=== PATIENT | male | born 1935 | race Caucasian/White ===

== ENCOUNTER 2018-07-01 11:13 | Inpatient (IN) | payer MEDICARE, BC ==
--- NOTE | 2018-07-01 11:34 | ED ---
Shortness of Breath - HPI Summary HPI Summary: This patient is a 82 year old M presenting to [facility] accompanied by his family with a chief complaint of SOB. The patient rates the pain 0/10 in severity. Symptoms aggravated by movement. Patient reports general malaise, fever, and a cough that is worse when lying. Patient denies CP and recent steroid use. Pt also had n/v last night. 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 He began a new medication and the dose has been increased with him reaching max dosage 3 days ago. Since then he has had increased SOB. He uses a CPAP at 2 L at night but not NC. 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 No hx CHF but had a valve replacement a year ago. - History of Current Complaint Chief Complaint: EDShortnessOfBreath Time Seen by Provider: 07/01/18 11:24 Hx Obtained From: Patient Onset/Duration: Still Present, Worse Since Timing: Constant Current Severity: Moderate Dyspnea At: Rest Aggrevating Factors: Movement Associated Signs & Symptoms: Cough (Nonproductive), Fever - Allergy/Home Medications Allergies/Adverse Reactions: Allergies Allergy/AdvReac Type Severity Reaction Status Date / Time tramadol Allergy Intermediate Unknown Verified 07/01/18 14:34 Reaction Details tamsulosin Allergy Unknown Unknown Verified 07/01/18 14:34 Reaction Details Home Medications: Home Medications Amitriptyline TAB* [Elavil TAB*] 25 mg PO QPM 07/01/18 [History Confirmed ] Ascorbic Acid TAB* [Vitamin C TAB*] 1,000 mg PO .FIVE TIMES A DAY 07/01/18 [ History Confirmed 07/01/18] Atorvastatin* [Lipitor*] 20 mg PO QPM 07/01/18 [History Confirmed 07/01/18] Azithromycin TAB* [Zithromax TAB (Z-DARLINE) 250 mg #6 tabs] 250 mg PO QAM 07/01/18 [History Confirmed 07/01/18] Cholecalciferol TAB* [Vitamin D TAB*] 400 unit PO EVERY OTHER DAY 07/01/18 [ History Confirmed 07/01/18] Cyanocobalamin TAB* [Vitamin B12 TAB*] 500 mcg PO DAILY 07/01/18 [History Confirmed 07/01/18] Digoxin TAB* [Lanoxin TAB*] 0.125 mg PO DAILY 07/01/18 [History Confirmed ] Flocinonide Cream 1 applic TOPICAL DAILY PRN 07/01/18 [History Confirmed ] Fluticasone NASAL SPRAY 50MCG* [Flonase NASAL SPRAY 50MCG*] 1 spray BOTH NARES DAILY 07/01/18 [History Confirmed 07/01/18] Glucosamine/MSM/Chondroitin A [Glucosamine Chondroitin &] 2 tab PO DAILY [History Confirmed 07/01/18] Lecithin, Soy [Lecithin] 1,200 mg PO DAILY 07/01/18 [History Confirmed 07/01/18] Magnesium Oxide TAB* [MagOx 400 TAB*] 400 mg PO DAILY 07/01/18 [History Confirmed 07/01/18] Maitake Mushroom 6 dose PO DAILY 07/01/18 [History Confirmed 07/01/18] Metoprolol Succinate XL TAB* [Toprol XL TAB*] 50 mg PO QPM 07/01/18 [History Confirmed 07/01/18] Metoprolol Succinate XL TAB* [Toprol XL TAB*] 75 mg PO QAM 07/01/18 [History Confirmed 07/01/18] N-Acetyl Cysteine 750mg 600 mg PO BID 07/01/18 [History Confirmed 07/01/18] Pantoprazole TAB (NF) [Protonix TAB (NF)] 20 mg PO DAILY 07/01/18 [History Confirmed 07/01/18] Pirfenidone [Esbriet] 267 mg PO DAILY 07/01/18 [History Confirmed 07/01/18] Tamsulosin CAP* [Flomax CAP*] 0.4 mg PO QPM 07/01/18 [History Confirmed 07/01/18 ] Thiamine TAB* [Vitamin B-1 TAB*] 100 mg PO DAILY 07/01/18 [History Confirmed 04/10] Vitamin B5 500mg 500 mg PO DAILY 07/01/18 [History Confirmed 07/01/18] Warfarin TAB(*) [Coumadin TAB(*)] 4 mg PO SUMOTUWEFRSA 07/01/18 [History Confirmed 07/01/18] Warfarin TAB(*) [Coumadin TAB(*)] 6 mg PO TH 07/01/18 [History Confirmed ] PMH/Surg Hx/FS Hx/Imm Hx Endocrine/Hematology History: Denies: Hx Diabetes, Hx Systemic Lupus Erythematosus Cardiovascular History: Reports: Hx Valvular Heart Disease - MVP Denies: Hx Congestive Heart Failure, Hx Hypertension Respiratory History: Reports: Hx Sleep Apnea, Other Respiratory Problems/ Disorders - PULMONARY FIBROSIS, BRONCHIECTASIS Denies: Hx Chronic Obstructive Pulmonary Disease (COPD) - see lung disease GI History: Reports: Hx Irritable Bowel - ? 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 Pulmonary Fibrosis. Acetelectasis/Bronch. Has had chemotherapy and radiation 1990 Hx Chemotherapy: Yes - 1990 - Surgical History Surgery Procedure, Year, and Place: Tonsillectomy. Oral Surgery. Lymph Node Excision 1990. [facility] Hx Anesthesia Reactions: No Infectious Disease History: No Infectious Disease History: Denies: Traveled Outside the [place] in Last 30 Days - Social History Alcohol Use: Daily Alcohol Amount: 1-2 Substance Use Type: Reports: None Smoking Status (MU): Former Smoker Type: Pipe Amount Used/How Often: ONCE A DAY SMOKED PIPE Length of Time of Smoking/Using Tobacco: 9 YEARS Have You Smoked in the Last Year: No Review of Systems Positive: Fever, Other - general malaise Negative: Chest Pain Positive: Shortness Of Breath, Cough Positive: Vomiting, Nausea All Other Systems Reviewed And Are Negative: Yes Physical Exam - Summary Physical Exam Summary: GENERAL: Patient is a well-developed and nourished M who is lying comfortable in the stretcher. There is increased work of breathing HEAD AND FACE: Normocephalic EYES: PERRLA, EOMI x 2. EARS: Hearing grossly intact. MOUTH: Oropharynx within normal limits. NECK: Supple, trachea is midline, no adenopathy, no JVD, no carotid bruit. CHEST: Symmetric, no tenderness at palpation LUNGS: crackles diffusely CVS: Regular rate and rhythm, S1 and S2 present, no murmurs or gallops appreciated. ABDOMEN: Soft, non-tender. Bowel sounds are normal. No abdominal abnormal pulsations. EXTREMITIES: Full ROM in all major joints, no edema, no cyanosis or clubbing. NEURO: Alert and oriented x 3. No acute neurological deficits. Speech is normal and follows commands. SKIN: Dry and warm Triage Information Reviewed: Yes Vital Signs On Initial Exam: Initial Vitals Temp Pulse Resp BP Pulse Ox 98.0 F 95 28 108/62 94 18 11:18 1118 11:18 1118 11:18 07/01/18 11:18 07/01/18 11:18 Vital Signs Reviewed: Yes Diagnostics - Vital Signs Vital Signs Temp Pulse Resp BP Pulse Ox 07/01/18 11:18 98.0 F 95 28 108/62 94 - Laboratory Result Diagrams: 07/01/18 11:38 07/01/18 11:38 Lab Statement: Any lab studies that have been ordered have been reviewed, and results considered in the medical decision making process. - Radiology CXR Radiology Interpretation Completed By: Radiologist Summary of Radiographic Findings: COPD WITH CHRONIC INTERSTITIAL LUNG DISEASE. ED physician has reviewed this radiology report. - EKG 1113 Cardiac Rate: Other Rate EKG Rhythm: Atrial Fibrillation - at 63 BPM Summary of EKG Findings: interventricular conduction delay. Non specific ST depressions. Course/Dx - Course Assessment/Plan: This patient is a 82 year old M presenting to [facility] accompanied by his family with a chief complaint of SOB. An EKG reveals afib 69 BPM interventricular conduction delay. Non specific ST depressions. CXR reveals, per radiologist, COPD WITH CHRONIC INTERSTITIAL LUNG DISEASE. Work up remarkable for an elevated D dimer. CTA chest shows no PE. Presentation is most consistent with idiopathic pulmonic fibrous. We discussed patient care with Dr. Yoo and they have accepted the patient for admission. Patient will be admitted. The patient is agreeable with this plan. - Diagnoses Provider Diagnoses: Shortness of breath - Physician Notifications Discussed Care of Patient With: Laine Yoo Time Discussed With Above Provider: 13:03 Instructed by Provider To: Admit As Inpatient - Critical Care Time Critical Care Time: 30-74 min Discharge - Sign-Out/Discharge Documenting (check all that apply): Patient Departure - admitted - Discharge Plan Condition: Fair Disposition: ADMITTED TO [facility] - Billing Disposition and Condition Condition: FAIR Disposition: Admitted to [facility] - Attestation Statements Document Initiated by Carmenibe: Yes Documenting Scribe: Francesco Partida Provider For Whom Scribe is Documenting (Include Credential): Gregoria Lopez MD Scribe Attestation: Francesco Palacios, scribed for Gregoria Lopez MD on 07/01/18 at 1810. Scribe Documentation Reviewed: Yes Provider Attestation: The documentation as recorded by the Francesco elias accurately reflects the service I personally performed and the decisions made by me, Gregoria Lopez MD
[2018-07-01] MEDS ORDERED: Dexamethasone IV* 4 MG/ML 1 ML (4 MG) IV SLOW PU ONE (11:36)
[2018-07-01] MEDS ORDERED: Albuterol/Ipratropium NEB.SOL* Albuterol 2.5 MG/Ipratropium 0.5 MG 3 ML INH ONE (11:36)
[2018-07-01 11:55] LABS: ABS Basophils 0.1 10^3/ul (0-0.2); ABS Eosinophils 0.3 10^3/ul (0-0.6); ABS Lymphocytes 1.5 10^3/ul (1.0-4.8); ABS Monocytes 0.8 10^3/ul (0-0.8); ABS Neutrophils 5.1 10^3/ul (1.5-7.7); ABS Nucleated RBC 0 10^3/ul; Eosinophil % 3.8 % (0-6); Hematocrit 42 % (42-52); Hemoglobin 14.4 g/dl (14.0-18.0); Lymphocyte % 19.6 % (25-47); Mean Corpuscular HGB Conc 34 g/dl (31-36); Mean Corpuscular Hemoglobin 32 pg (27-31); Mean Corpuscular Volume 96 fL (80-94); Mean Platelet Volume 7.5 fL (7.4-10.4); Nucleated Red Blood Cells % 0; Platelet Count 167 10^3/ul (150-450); Red Blood Count 4.43 10^6/ul (4.00-5.40); Red Cell Distribution Width 14 % (10.5-15); White Blood Count 7.9 10^3/ul (3.5-10.8)
[2018-07-01 12:14] LABS: EGFR Non-African American 84.4 (>60)
[2018-07-01 12:39] LABS: INR 2.04 (0.77-1.02)
[2018-07-01] MEDS ORDERED: Acetaminophen TAB* 325 MG PO PRN (15:43)
[2018-07-01] MEDS ORDERED: Ondansetron INJ* 2 MG/ML VIAL IV PRN (15:43)
[2018-07-01] MEDS ORDERED: Albuterol 2.5 MG/3 ML NEB.SOL* (0.083%) INH PRN (15:43)
[2018-07-01] MEDS ORDERED: Vancomycin(*) 1,000 MG in NS 0.9% 250 ML* 250 ML IVPB ONE (15:44)
[2018-07-01] MEDS ORDERED: NS 0.9% 1000 ML* 1,000 ML IV SCH (15:45)
[2018-07-01] MEDS ORDERED: Vancomycin per Pharmacy* NOTE FOLLOW UP SCH (16:00)
[2018-07-01] MEDS ORDERED: Iohexol 350* (CONTRAST) 500 ML MDV IV ONE (16:01)
[2018-07-01] MEDS: Albuterol/Ipratropium NEB.SOL* Albuterol 2.5 MG/Ipratropium 0.5 MG 3 ML INH SCH ×3 (16:29→22:49)
[2018-07-01] MEDS: Cefepime 2 GM in Dextrose(*) 2 GM/50 ML BAG IV SCH (16:59)
[2018-07-01] MEDS ORDERED: Warfarin TAB(*) 6 MG PO SCH (17:00)
[2018-07-01] MEDS: Azithromycin IV(*) 500 MG in NS 0.9% 250 ML* 250 ML IVPB SCH (17:37)
[2018-07-01] MEDS: methylPREDNISolone 125 MG* 2 ML VIAL IV SCH ×2 (17:37→23:37)
[2018-07-01] MEDS: Amitriptyline TAB* 25 MG PO SCH ×2 (17:38→21:02)
[2018-07-01] MEDS: Tamsulosin CAP* 0.4 MG PO SCH ×2 (17:38→21:01)
[2018-07-01] MEDS: Atorvastatin* 20 MG TAB PO SCH ×2 (17:38→21:01)
[2018-07-01] MEDS ORDERED: Metoprolol Tartrate TAB* 25 MG PO SCH (21:00)
[2018-07-01] MEDS ORDERED: N ACETYL CYSTEINE PO SCH (21:00)
[2018-07-01] MEDS: Mometasone/Formoter 200/5 MDI INH SCH (21:00)
[2018-07-01] MEDS: Acetylcysteine CAP (RENAL)* 600 MG PO SCH (21:01)
[2018-07-01] MEDS: Metoprolol Tartrate TAB* 25 MG PO SCH (21:04)
--- NOTE | 2018-07-01 21:29 | CONS ---
PULMONARY CONSULT REPORT: DATE OF CONSULT: 07/01/18 CONSULTATION REQUESTED BY: Pedro Sow NP REASON FOR CONSULT: Evaluation of shortness of breath and hypoxemia. HISTORY OF PRESENT ILLNESS: The patient is an 82-year-old male with history of idiopathic pulmonary fibrosis, recently started on medication, sleep apnea, BPH , arthritis, cataracts, essential tremor, T-cell lymphoma, status post chemo and radiation in 1990. The patient presents for evaluation of worsening shortness of breath. The patient recently had evaluation at [facility] for pulmonary fibrosis. He was initiated on pirfenidone. He was started on 100 mg b.i.d. dose which was slowly increased to the maximum dose a few days back. He started noticing significant fatigue over the past 4 to 5 days. He also has been having worsening shortness of breath. He has chronic cough not productive of significant phlegm. He also reports slight worsening in his cough. Cough is worse when he lies down. He gets some relief with albuterol inhaler and essential oils on his back. He denies chest pain, palpitations, dizziness. Reports significant fatigue. Also, reports nausea and vomiting yesterday. He reports choking while eating yesterday and thinks he might have aspirated into his lungs. He had significant cough post that episode. He is on CPAP with 2 L of oxygen at night. He has a history of mitral valve replacement in the past and has been on warfarin. The patient found to be significantly tachypneic on arrival in the ED. He was noted to be mildly hypoxemic. He was initiated on supplemental oxygen and reports feeling better. Chest x-ray performed in the emergency room was personally reviewed by me. The patient with evidence of hyperinflation. He also has coarse diffuse reticular infiltrates that are unchanged prior to his prior x-rays. The patient also was initiated on GERD therapy recently; however, he feels that it did not improve his cough. He did not have elevated white count or left shift. INR was around 2, D- dimer is slightly elevated. His blood gas analysis showed respiratory alkalosis with pO2 of 110 while on 4 L O2. Sodium was within normal limits. His BNP was slightly elevated at 126 with normal troponins. Lactic acid within normal limits. He was started on broad-spectrum antibiotics empirically. His CT of the chest with contrast was ordered for evaluation of possible pulmonary embolism. PAST MEDICAL HISTORY: 1. Pulmonary fibrosis, has been on azithromycin for many years, recently started on pirfenidone. 2. Status post aortic valve replacement. 3. BPH. 4. Chronic cough. 5. Dyslipidemia. 6. Coronary artery disease. 7. Cataracts. 8. Osteoarthritis. 9. History of T-cell lymphoma, status post chemo and radiation in 1990. PAST SURGICAL HISTORY: 1. Tonsillectomy. 2. Oral surgery. 3. Lymph node excision in 1990. 4. Laser lithotripsy. ALLERGIES: FLOMAX, TRAMADOL. FAMILY HISTORY: Reviewed. Noncontributory to current presentation. SOCIAL HISTORY: Former smoker, smoked pipe for 9 years. Quit long time ago. No alcohol or drug abuse. REVIEW OF SYSTEMS: All 14 systems reviewed and as per HPI. PHYSICAL EXAM: The patient in mild respiratory distress. Vital signs: Temperature 98.7, pulse rate 82 beats per minute, respiratory rate 27 per minute , O2 sat 97% on 50% FiO2, blood pressure 92/64. HEENT: Pupils equal, reactive to light. Mucous membranes moist. Lungs: Crackles present at bases bilaterally. Cardiovascular: S1, S2 present, regular. No murmurs. Abdomen: Soft, nontender, nondistended. Bowel sounds present. Extremities: Normal range of motion. No edema. Skin: No rash or bruises. Neuro: No focal deficits. DIAGNOSTIC STUDIES/LAB DATA: WBC count 7.9, hemoglobin 14.4, hematocrit 42%, platelet count 167. INR 2.0. Blood gas analysis as described with respiratory alkalosis. Electrolytes, no abnormality seen. BNP is slightly elevated. Influenza A and B negative. Chest x-ray as described above in HPI. CT scan of the chest pending. EKG showed no acute ST-T wave changes. Pulmonary function testing in 2012 did not reveal any obstructive ventilatory defect. No evidence of restriction seen. The patient's medical records from his hospitalizations before at [facility] were reviewed. The patient with low FVC of 35%. IMPRESSION AND RECOMMENDATIONS: 82-year-old male without significant smoking history with pulmonary embolism, considered to be idiopathic was initiated on pirfenidone. The patient presents with generalized malaise, nausea, vomiting, possible aspiration event while eating yesterday and with worsening shortness of breath and hypoxemia. Acute exacerbation of idiopathic pulmonary fibrosis is more likely. Does not manifest any signs of pneumonia. We will, however, cover empirically. Do not suspect pulmonary embolism. He is also on Coumadin with INR that is therapeutic. However, given significant hypoxemia and symptoms , we will rule out pulmonary embolism. We will initiate the patient on high- flow O2 and titrate as tolerated. Would start on broad-spectrum antibiotic empirically and will stop if no signs of sepsis noted. Continue with GERD prophylaxis. He has history of moderate obstructive sleep apnea with AHI of 17.1, O2 nakul of 81%. He had CPAP titration study, required CPAP of 10 cm H2O. He is using CPAP along with oxygen. He is compliant with his CPAP and denies any issues. Continue with CPAP here. Will stop pirfenidone given acute change in his status at this time. We will restart once he is stable. Last echocardiogram from March of 2017 did show mild to moderate dilatation of the left atrium, normal functioning of mitral valve. He had cardioversion in the past and was converted to sinus rhythm. The patient had swallow evaluation in January of 2018. No evidence of aspiration was seen at that time. Aspiration precautions. He had coronary catheterization in the past, was not found to have significant occlusion. Thank you for allowing me to participate in the care of your patient. We will follow up with you. Plan was discussed with Pedro Sow, patient and patient's family at bedside. 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 [id number]/[facility] #: [id number] ANDREW
--- NOTE | 2018-07-01 21:37 | HP ---
CC: Armen Han MD; Dr. Hilton; Dr. Ramsey * HISTORY AND PHYSICAL: DATE OF ADMISSION: 07/01/18 PRIMARY CARE PROVIDER: Armen Han MD ATTENDING PHYSICIAN WHILE IN THE HOSPITAL: Laine Yoo DO * (report dictated by Pedro Sow NP). CONSULTING TAX LAWYER: Dr. Hilton. CONSULTING NETWORK ENGINEERING ADVISOR: Dr. Ramsey. CHIEF COMPLAINT: 1. Nausea. 2. Shortness of breath. 3. Weakness. HISTORY OF PRESENT ILLNESS: Mr. Guerrero is an 82-year-old male patient with a significant history of atrial fibrillation; lymphoma; mitral valve disease, status post replacement. He has a history of DAINA. He carries a history of aortic regurg and history of IPF, arthritis and IBS as well. He is coming into our ED today. He says this summer he was seen at [facility] for his IPF and further workup. Ultimately, it was thought that his IPF may be related to radiation treatment from lymphoma. He comes into our ER today stating that he was recently started on a medication Esbriet. He started on this 3 weeks ago. He has recently increased it up to 3 tabs t.i.d., but he says since taking this, he has been having early satiety, feeling nauseated, not feeling well, feeling weak. Over the last 4 days particularly, he has had increasing cough, he has been more short of breath. His says that he has been leaning forward in what look likes a tripod position to catch his breath and she has noted that he has been panting and not been able to catch his breath. There have been no reported fevers and no production of the cough, but he has just been more and more short of breath. He in fact went and saw his primary today, he did have some vomiting, he had coughed up, he had some hemoptysis. He has had some weight loss, energy, feeling achy and just not feeling well. He was noted to be hypoxic at Dr. Han's office. He was sent to the hospital for evaluation. He denies any chest pain. He says that he does feel short of breath. He typically denied having any change in medications with the exception of the new medication for his IPF, the Esbriet. He came into the ED, he was noted to be tachypneic with minimal exertion. He was requiring O2. His chest x-ray, from our chest x-ray over a year ago, did appear to be worsened and his IPF did appear to be worse. There was concern for possible underlying infection based on his presentation, viral or bacterial and we were asked to evaluate for admission. PAST MEDICAL HISTORY: Significant for: 1. AFib. 2. Lymphoma. 3. Mitral valve disorder. 4. Osteoarthritis. 5. IBS. 6. IPF. 7. Aortic regurgitation. 8. DIANA. PAST SURGICAL HISTORY: 1. 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 2. He has had a tonsillectomy. 3. Lymph node resection. 4. He has had multiple teeth extractions. HOME MEDICATIONS: Include: 1. N-acetylcysteine 600 mg p.o. b.i.d. 2. Maitake mushroom 6 pills daily. 3. Magnesium oxide 400 mg daily. 4. Soy 1200 mg p.o. daily. 5. Glucosamine/chondroitin 2 tablets p.o. daily. 6. Vitamin B12 500 mcg daily. 7. Vitamin B5 500 mg daily. 8. Thiamine 100 mg p.o. daily. 9. Vitamin D 400 units p.o. every other day. 10. Vitamin C 1000 mg p.o. 5 times a day. 11. Esbriet. He is on 3 tablets p.o. t.i.d. 12. Digoxin 0.125 mg p.o. daily. 13. Protonix 20 mg daily. 14. Coumadin 6 mg on and he is taking 4 mg Thursday, Thursday, Thursday, Thursday, Thursday, Thursday. 15. ProAir 2 puffs inhaled every 4 hours as needed. 16. Flomax 0.4 mg p.o. q.p.m. 17. Azithromycin 250 mg p.o. daily. 18. Lipitor 20 mg daily. 19. cream 1 application topically daily as needed. 20. Flonase 1 spray both nares daily. 21. Toprol-XL 50 mg at bedtime, 75 mg in the morning. 22. Elavil 25 mg p.o. daily at bedtime. ALLERGIES TO MEDICATIONS: Include TRAMADOL, TIKOSYN, and PROPAFENONE. FAMILY HISTORY: His mother had colon cancer as did his father. SOCIAL HISTORY: He is a former smoker. Occasionally drinks alcohol. Surrogate decision maker is his . REVIEW OF SYSTEMS: There is no documented fever. He does admit to a weight change of about 5 pounds. He denies having any double vision. There is no ear discharge. He denied any rhinorrhea or sore throat. Denies any thyroid enlargement. He denied having any chest pain. He does admit to dyspnea, initially dyspnea on exertion. Denies having any abdominal pain, but he did admit to nausea and vomiting. No dysuria, no frequency. No seizure. Denied having any loss of consciousness. Review of 14 systems was completed, all others negative. PHYSICAL EXAMINATION GENERAL: At this time, Mr. Guerrero is an 82-year-old male patient. He is chronically ill appearing. He does appear to be in [id number] amount of respiratory distress. VITAL SIGNS: Blood pressure 92/64, pulse 82, respirations were 27, O2 sat 97% on Vapotherm, temperature 98.7. HEENT: Head: Atraumatic and normocephalic. Eyes: EOMs are intact. Sclerae anicteric and not pale. Throat: Oral mucosa appears to be dry. No oropharyngeal erythema. NECK: Supple. LUNGS: He had diffuse crackles in the bases bilaterally and wheezing. Equal diaphragmatic expansion. HEART: Sounds S1, S2. He had an irregularly irregular rate. No murmurs, rubs , or gallops. ABDOMEN: Soft. It was flat, nontender. Bowel sounds were present. EXTREMITIES: Pulses were 2+ throughout. No peripheral edema. He is moving all 4 extremities with 5/5 strength. NEUROLOGICAL: He is awake. He is alert. He is oriented x3. He had no gross focal deficits. SKIN: Intact. DIAGNOSTIC STUDIES/LAB DATA: WBC of 7.9, RBC of 4.43, hemoglobin of 14.4, hematocrit of 42, and his platelet count was 167,000. INR was 2.04, PTT of 33.8 , D- dimer of 286. Blood gas showed a pH of 7.56, pCO2 of 28, his pO2 was 110. His sodium was 138, potassium was 4.7, chloride of 102, his bicarb was 30, BUN 15, creatinine of 0.87, glucose 86, lactic 1, calcium 9.6, mag 2.2. Total bili 0.7, AST 31, ALT 32, alk phos 80. Troponin of 0.01, repeat troponin was 0.01. BNP 126. Albumin of 2.5. Serology negative for flu. He did have a chest x-ray obtained today, impression: COPD with chronic interstitial lung disease. Again, when I review it, it appears to be worsening fibrosis compared to his chest x-ray from a year ago. I do not see any obvious infiltrates. He did have an EKG obtained today as well, which does show atrial fibrillation with an intraventricular conduction delay with LVH with a normal axis, rate of 69. When you look back to his EKG from a year ago, it appears to be similar. Old medical records were reviewed. ASSESSMENT AND PLAN: Mr. Guerrero is an 82-year-old male patient coming into our ER today with complaints of worsening shortness of breath, not feeling well , fatigue, nausea and vomiting. We were asked to evaluate for admission. He will be admitted under inpatient status for: 1. Acute hypoxic respiratory failure secondary to idiopathic pulmonary fibrosis exacerbation. Again, I am not sure what is exacerbating his idiopathic pulmonary fibrosis. At this point, it could be certainly a viral illness or bacterial illness. I did touch base with his pulmonology group in [place] and also our brick carrier here. The plan is for aggressive steroids, Solu-Medrol 60 q.8 nebs every 4 hours in the form of DuoNeb, inhaled steroids; in addition to this broad- spectrum antibiotics in the form of vanco, cefepime, and azithromycin. He will be pancultured. I will send off viral cultures if possible per the recommendations of his brick carrier. I have put him on Vapotherm in the ICU given his work of breathing. His gas clearly shows that he was again tachypneic and we will continue with aggressive pulmonary toileting. We will try to get sputum cultures, Legionella antigen and Strep pneumo antigen and we will continue to follow him closely. I am holding his Esbriet medication per the recommendations of Pulmonology and we are getting a CTA of the chest just to rule out pulmonary embolism, although I suspect this is less likely given the fact that he is on Coumadin and his INR is therapeutic. 2. Atrial fibrillation. His blood pressure down here has been running in the low 100s and 90s, so I will continue his digoxin level which is pending and I will continue his metoprolol, but I have switched his metoprolol to immediate release at 50 b.i.d. It is a slightly smaller dose, but I do not want to cause hypotension and I do not want him to be on an extended release formulation while he is acutely ill. We will continue his warfarin as well. 3. Lymphoma. Follow up with his PCP. 4. History of mitral valve disorder and aortic regurgitation. Again, at this point, I do not think this is contributing. His BNP is stable. Trops are negative. He can follow up with his PCP. 5. Obstructive sleep apnea. I have ordered his CPAP, but he is currently on his Vapotherm. 6. Arthritis. Continue meds as prescribed. 7. Irritable bowel syndrome. Continue with his current medical regimen. 8. DVT prophylaxis: His INR is therapeutic. We will continue with this. 9. Fluids, electrolytes, and nutrition: He can have a regular diet. 10. Code status: Full code. I did have a long discussion with the patient about goals of care and the fact that intubation I think would be detrimental and could be leading to him not coming off the ventilator; however, the family would like to think about the wishes, particularly the patient as his overall prognosis is poor given his disease. TIME SPENT: Time spent on the admission which was critical care time was 90 minutes, greater than half the time spent [id number] with the patient obtaining my history and physical, other half of the time spent going over the plan of care with the patient and implementing the plan of care. I did discuss the plan of care with my attending, Dr. Yoo; she is in agreement. PEDRO SOW, MARIA DOLORES [id number]/CPS #: [id number] ANDREW
[2018-07-02] MEDS: Vancomycin(*) 1,000 MG in NS 0.9% 250 ML* 250 ML IVPB SCH ×2 (02:53→11:26)
[2018-07-02] MEDS: Albuterol/Ipratropium NEB.SOL* Albuterol 2.5 MG/Ipratropium 0.5 MG 3 ML INH SCH ×5 (03:00→19:14)
[2018-07-02] MEDS: Cefepime 2 GM in Dextrose(*) 2 GM/50 ML BAG IV SCH ×2 (05:05→18:12)
[2018-07-02 06:19] LABS: ABS Basophils 0.1 10^3/ul (0-0.2); ABS Eosinophils 0 10^3/ul (0-0.6); ABS Lymphocytes 1.1 10^3/ul (1.0-4.8); ABS Monocytes 0.1 10^3/ul (0-0.8); ABS Neutrophils 7.3 10^3/ul (1.5-7.7); ABS Nucleated RBC 0 10^3/ul; Eosinophil % 0 % (0-6); Hematocrit 39 % (42-52); Hemoglobin 13.1 g/dl (14.0-18.0); Lymphocyte % 12.9 % (25-47); Mean Corpuscular HGB Conc 34 g/dl (31-36); Mean Corpuscular Hemoglobin 32 pg (27-31); Mean Corpuscular Volume 96 fL (80-94); Mean Platelet Volume 7.4 fL (7.4-10.4); Nucleated Red Blood Cells % 0; Platelet Count 153 10^3/ul (150-450); Red Blood Count 4.05 10^6/ul (4.00-5.40); Red Cell Distribution Width 14 % (10.5-15); White Blood Count 8.7 10^3/ul (3.5-10.8)
[2018-07-02 06:27] LABS: INR 2.44 (0.77-1.02)
[2018-07-02 06:44] LABS: EGFR Non-African American 112.2 (>60)
[2018-07-02] MEDS: methylPREDNISolone 125 MG* 2 ML VIAL IV SCH ×2 (08:25→16:44)
[2018-07-02] MEDS: Acetylcysteine CAP (RENAL)* 600 MG PO SCH (09:28)
[2018-07-02] MEDS: Metoprolol Tartrate TAB* 25 MG PO SCH ×2 (09:28→21:29)
[2018-07-02] MEDS: Digoxin TAB* 0.125 MG PO SCH (09:29)
[2018-07-02] MEDS ORDERED: Vancomycin Trough Check NOTE FOLLOW UP ONE (09:30)
[2018-07-02] MEDS: Mometasone/Formoter 200/5 MDI INH SCH ×2 (09:45→19:14)
[2018-07-02] MEDS ORDERED: Vancomycin(*) 1,000 MG in NS 0.9% 250 ML* 250 ML IVPB SCH (12:00)
[2018-07-02] MEDS: PTO: Pantoprazole TAB (NF) 20 MG TAB PO SCH (16:43)
[2018-07-02] MEDS: Azithromycin IV(*) 500 MG in NS 0.9% 250 ML* 250 ML IVPB SCH (16:45)
--- NOTE | 2018-07-02 17:42 | PN ---
Progress Note - Progress Note Date of Service: 07/02/18 - Pulm f/u note Note: Pt seen and examined at bedside. Reports feeling better, able to be titrated down to 5L ROS: 14 systems reviewed. SOB with movement, no cough, chest pain, LE swelling, N, diarrhea, head aches, rash, urinary complaints Active Medications Generic Name Dose Route Start Last Admin Trade Name Freq PRN Reason Stop Dose Admin Acetaminophen 650 mg 07/01/18 15:43 Tylenol Tab* PO Q4H PRN FEVER/PAIN Albuterol 2.5 mg 07/01/18 15:43 Ventolin 2.5 Mg/3 Ml Neb.Keri* INH Q2H PRN SOB/WHEEZING Albuterol/Ipratropium 1 neb 07/02/18 13:00 07/02/18 13:59 Duoneb (Albuterol 2.5 Mg/Ipratropium 0.5 Mg) INH 1 neb [id number] AWAKE CHANDU Administration Amitriptyline HCl 25 mg 07/01/18 21:00 07/01/18 21:02 Elavil Tab* PO 25 mg 2100 CHANDU Administration Atorvastatin Calcium 20 mg 07/01/18 21:00 07/01/18 21:01 Lipitor* PO 20 mg 2100 CHANDU Administration Benzonatate 100 mg 07/02/18 14:25 Tessalon Cap* PO BID PRN COUGH Digoxin 0.125 mg 07/02/18 09:00 07/02/18 09:29 Lanoxin Tab* PO 0.125 mg DAILY CHANDU Administration Sodium Chloride 1,000 mls @ 100 mls/hr 07/01/18 15:45 07/01/18 16:59 Ns 0.9% 1000 Ml* IV 100 mls/hr PER RATE CHANDU Administration Cefepime HCl 2 gm in 50 mls @ 100 mls/hr 07/01/18 17:00 07/02/18 05:05 Maxipime 2 Gm In Dextrose Duplex (*) IV 100 mls/hr Q12H CHANDU Administration Azithromycin 500 mg/ Sodium 250 mls @ 250 mls/hr 07/01/18 16:00 07/02/18 16: 45 Chloride IVPB 250 mls/hr Q24H CHANDU Administration Vancomycin HCl 1,000 mg/ 250 mls @ 166.667 mls/hr 07/03/18 00:00 Sodium Chloride IVPB 0000,1200 CHANDU Methylprednisolone Sodium Succinate 60 mg 07/01/18 16:00 07/02/18 16:44 Solu-Medrol 125mg * IV 60 mg Q8H [facility] Administration Metoprolol Tartrate 50 mg 07/01/18 21:00 07/02/18 09:28 Lopressor Tab* PO 50 mg BID [facility] Administration Mometasone Furoate/Formoterol Fumar 2 puff 07/01/18 21:00 07/02/18 09:45 Dulera 200/5 Mdi* INH Not Given BID [facility] Acetylcysteine 750 1 dose 07/02/18 21:00 Mg Capsules PO BID [facility] Ondansetron HCl 4 mg 07/01/18 15:43 Zofran Inj* IV Q6H PRN NAUSEA Pantoprazole Sodium 20 mg 07/02/18 09:00 07/02/18 16:43 Protonix Tab (Nf) PO 20 mg DAILY [facility] Administration Pharmacy Consult 1 note 07/01/18 16:00 Vancomycin Per Pharmacy* FOLLOW UP .VANC PER PHARMACY [facility] Pharmacy Profile Note 1 note 07/03/18 11:30 Vancomycin Trough Check FOLLOW UP 07/03/18 11:31 .ENTER TIME ONE Tamsulosin HCl 0.4 mg 07/01/18 18:00 07/01/18 21:01 Flomax Cap* PO 0.4 mg QPM [facility] Administration Warfarin Sodium 6 mg 07/01/18 17:00 07/01/18 17:38 Coumadin Tab(*) PO 6 mg Th@1700 [facility] Administration Protocol Warfarin Sodium 4 mg 07/02/18 17:00 Coumadin Tab(*) PO [id number]@1700 [facility] Protocol Vital Signs Temp Pulse Resp BP Pulse Ox 98.2 F 63 22 104/58 98 07/02/18 15:43 07/02/18 12:01 07/02/18 12:01 07/02/18 12:00 07/02/18 12:01 O/E: Pt in NAD, sitting up in bed HEENT: PERRLA, no JVD Lungs: Crackles at bases b/l CVS:S1, S2+, regualr Abd: Soft, BS+ Ext: Normal ROM Skin: NO rash Neuro: Alert, awake, no focal deficits Laboratory Results - last 24 hr 07/01/18 07/01/18 07/01/18 11:38 11:38 17:55 WBC RBC Hgb Hct MCV MCH MCHC RDW Plt Count MPV Neut % (Auto) Lymph % (Auto) [place] % (Auto) Eos % (Auto) Baso % (Auto) Absolute Neuts (auto) Absolute Lymphs (auto) Absolute Monos (auto) Absolute Eos (auto) Absolute Basos (auto) Absolute Nucleated RBC Nucleated RBC % INR (Anticoag Therapy) Sodium 138 Potassium 4.7 Chloride 102 Carbon Dioxide 30 Anion Gap 6 BUN 15 Creatinine 0.87 Est GFR ( Amer) 102.2 Est GFR (Non-Af Amer) 84.4 BUN/Creatinine Ratio 17.2 Glucose 86 Calcium 9.6 Magnesium 2.2 Total Bilirubin 0.70 AST 31 ALT 32 Alkaline Phosphatase 80 Troponin I 0.01 0.01 C-Reactive Protein 26.37 H Cancelled Total Protein 7.5 Albumin 3.5 Globulin 4.0 Albumin/Globulin Ratio 0.9 L Vancomycin Trough 07/02/18 07/02/18 07/02/18 06:08 06:08 06:08 WBC 8.7 RBC 4.05 Hgb 13.1 L Hct 39 L MCV 96 H MCH 32 H MCHC 34 RDW 14 Plt Count 153 MPV 7.4 Neut % (Auto) 84.7 H Lymph % (Auto) 12.9 L [place] % (Auto) 1.7 Eos % (Auto) 0 Baso % (Auto) 0.7 Absolute Neuts (auto) 7.3 Absolute Lymphs (auto) 1.1 Absolute Monos (auto) 0.1 Absolute Eos (auto) 0 Absolute Basos (auto) 0.1 Absolute Nucleated RBC 0 Nucleated RBC % 0 INR (Anticoag Therapy) 2.44 H Sodium 138 Potassium 4.6 Chloride 108 Carbon Dioxide 25 Anion Gap 5 BUN 16 Creatinine 0.68 Est GFR ( Amer) 135.8 Est GFR (Non-Af Amer) 112.2 BUN/Creatinine Ratio 23.5 H Glucose 164 H Calcium 8.8 Magnesium Total Bilirubin AST ALT Alkaline Phosphatase Troponin I C-Reactive Protein Total Protein Albumin Globulin Albumin/Globulin Ratio Vancomycin Trough 07/02/18 08:50 WBC RBC Hgb Hct MCV MCH MCHC RDW Plt Count MPV Neut % (Auto) Lymph % (Auto) [place] % (Auto) Eos % (Auto) Baso % (Auto) Absolute Neuts (auto) Absolute Lymphs (auto) Absolute Monos (auto) Absolute Eos (auto) Absolute Basos (auto) Absolute Nucleated RBC Nucleated RBC % INR (Anticoag Therapy) Sodium Potassium Chloride Carbon Dioxide Anion Gap BUN Creatinine Est GFR ( Amer) Est GFR (Non-Af Amer) BUN/Creatinine Ratio Glucose Calcium Magnesium Total Bilirubin AST ALT Alkaline Phosphatase Troponin I C-Reactive Protein Total Protein Albumin Globulin Albumin/Globulin Ratio Vancomycin Trough 12.5 I/R: 82 y o m with h/o IPF, recently started on Pirfedinone, a/w gen malaise, worsening SOB, hypoxic resp failure, being treated for possible acute IPF exacerbation Differentials- IPF exacerbation versus PNA- HCAP(was recently at hosp in [place] versus aspiration, episode of chocking while eating) 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 No signs of sepsis, can d/c On steroids- Solumedrol 60 q 8 hrs, will taper to 60q 12hrs today Not needing high flow Titrate FiO2 as tolerated GERD precautions Will c/w PPI Pirfenidone on hold c/w Coumadin for A.fib, rate controlled c/w nebs prn OOB to chair D/w RN at bedside
[2018-07-02] MEDS: Warfarin TAB(*) 4 MG PO SCH (18:14)
[2018-07-02] MEDS: Tamsulosin CAP* 0.4 MG PO SCH (18:14)
[2018-07-02] MEDS: Amitriptyline TAB* 25 MG PO SCH ×2 (19:30→21:29)
[2018-07-02] MEDS: Atorvastatin* 20 MG TAB PO SCH ×2 (19:31→21:28)
[2018-07-02] MEDS: ACETYLCYSTEINE PO SCH (21:28)
[2018-07-02] MEDS: Benzonatate CAP* 100 MG PO PRN (21:29)
[2018-07-02] MEDS: Melatonin 3 MG TAB PO SCH (23:45)
[2018-07-03] MEDS ORDERED: Vancomycin(*) 1,000 MG in NS 0.9% 250 ML* 250 ML IVPB SCH ×2
[2018-07-03] MEDS: methylPREDNISolone 125 MG* 2 ML VIAL IV SCH ×3 (00:01→21:40)
[2018-07-03] MEDS: Melatonin 3 MG TAB PO SCH ×2 (00:10→21:44)
[2018-07-03] MEDS: Albuterol/Ipratropium NEB.SOL* Albuterol 2.5 MG/Ipratropium 0.5 MG 3 ML INH SCH ×2 (01:40→07:36)
[2018-07-03] MEDS: Cefepime 2 GM in Dextrose(*) 2 GM/50 ML BAG IV SCH ×2 (04:50→17:23)
[2018-07-03] MEDS: Mometasone/Formoter 200/5 MDI INH SCH ×2 (07:36→20:04)
[2018-07-03] MEDS ORDERED: Albuterol/Ipratropium NEB.SOL* Albuterol 2.5 MG/Ipratropium 0.5 MG 3 ML INH PRN (07:43)
[2018-07-03] MEDS: Digoxin TAB* 0.125 MG PO SCH (08:50)
[2018-07-03] MEDS: PTO: Pantoprazole TAB (NF) 20 MG TAB PO SCH (08:51)
[2018-07-03] MEDS: Metoprolol Tartrate TAB* 25 MG PO SCH ×2 (08:51→21:43)
[2018-07-03] MEDS: ACETYLCYSTEINE PO SCH ×2 (08:51→21:42)
--- NOTE | 2018-07-03 11:13 | PN ---
Progress Note - Progress Note Date of Service: 07/03/18 - Pulmonary note Note: Pt seen and examined at bedside. Doing much better. No acute events o/n. Gets dyspneic with movement, has not ambulated yet. Denies signficant cough, has intermittent dry cough. Active Medications Generic Name Dose Route Start Last Admin Trade Name Freq PRN Reason Stop Dose Admin Acetaminophen 650 mg 07/01/18 15:43 Tylenol Tab* PO Q4H PRN FEVER/PAIN Albuterol 2.5 mg 07/01/18 15:43 Ventolin 2.5 Mg/3 Ml Neb.Keri* INH Q2H PRN SOB/WHEEZING Albuterol/Ipratropium 1 neb 07/03/18 07:43 Duoneb (Albuterol 2.5 Mg/Ipratropium 0.5 Mg) INH Q4H PRN SOB/WHEEZING Amitriptyline HCl 25 mg 07/01/18 21:00 07/02/18 21:29 Elavil Tab* PO 25 mg 2100 CHANDU Administration Atorvastatin Calcium 20 mg 07/01/18 21:00 07/02/18 21:28 Lipitor* PO 20 mg 2100 CHANDU Administration Benzonatate 100 mg 07/02/18 14:25 07/02/18 21:29 Tessalon Cap* PO 100 mg BID PRN Administration COUGH Bisacodyl 10 mg 07/03/18 09:00 Dulcolax Supp* CT DAILY CHANDU Digoxin 0.125 mg 07/02/18 09:00 07/03/18 08:50 Lanoxin Tab* PO 0.125 mg DAILY [facility] Administration Cefepime HCl 2 gm in 50 mls @ 100 mls/hr 07/01/18 17:00 07/03/18 04:50 Maxipime 2 Gm In Dextrose Duplex (*) IV 100 mls/hr Q12H [facility] Administration Azithromycin 500 mg/ Sodium 250 mls @ 250 mls/hr 07/01/18 16:00 07/02/18 16: 45 Chloride IVPB 250 mls/hr Q24H [facility] Administration Vancomycin HCl 1,000 mg/ 250 mls @ 166.667 mls/hr 07/03/18 00:00 07/03/18 00: 01 Sodium Chloride IVPB 166.667 mls/hr 0000,1200 CHANDU Administration Melatonin 3 mg 07/02/18 21:30 07/03/18 00:10 Melatonin PO 3 mg BEDTIME CHANDU Administration Methylprednisolone Sodium Succinate 60 mg 07/01/18 16:00 07/03/18 08:13 Solu-Medrol 125mg * IV 60 mg Q8H [facility] Administration Metoprolol Tartrate 50 mg 07/01/18 21:00 07/03/18 08:51 Lopressor Tab* PO 50 mg BID [facility] Administration Mometasone Furoate/Formoterol Fumar 2 puff 07/01/18 21:00 07/03/18 07:36 Dulera 200/5 Mdi* INH 2 puff BID [facility] Administration Pto Acetylcysteine 1 dose 07/02/18 21:00 07/03/18 08:51 750 Mg Capsules PO 1 dose BID [facility] Administration Ondansetron HCl 4 mg 07/01/18 15:43 Zofran Inj* IV Q6H PRN NAUSEA Pantoprazole Sodium 20 mg 07/02/18 09:00 07/03/18 08:51 Protonix Tab (Nf) PO 20 mg DAILY [facility] Administration Pharmacy Consult 1 note 07/01/18 16:00 Vancomycin Per Pharmacy* FOLLOW UP .VANC PER PHARMACY [facility] Pharmacy Profile Note 1 note 07/03/18 11:30 Vancomycin Trough Check FOLLOW UP 07/03/18 11:31 .ENTER TIME ONE Tamsulosin HCl 0.4 mg 07/01/18 18:00 07/02/18 18:14 Flomax Cap* PO 0.4 mg QPM [facility] Administration Warfarin Sodium 6 mg 07/01/18 17:00 07/01/18 17:38 Coumadin Tab(*) PO 6 mg Th@1700 [facility] Administration Protocol Warfarin Sodium 4 mg 07/02/18 17:00 07/02/18 18:14 Coumadin Tab(*) PO 4 mg [id number] [facility] Administration Protocol Vital Signs Temp Pulse Resp BP Pulse Ox 97.9 F 85 20 103/78 95 07/03/18 07:39 07/03/18 10:00 07/03/18 10:00 07/03/18 08:01 07/03/18 10:00 O/E: Pt sitting up in chair, NAD HEENT: PERRLA, no JVD Lungs: Crackles at bases b/l, improved since admission CVS: S1, S2+, regular Abd: Soft, BS+ Ext: Normal ROM Skin: No rash Neuro: Alert, awake, no focal defecits Labs: No new labs CXR, CTA were reviewed I/R: 82 y o m with h/o IPF, recently started on Pirfedinone, a/w gen malaise, worsening SOB, hypoxic resp failure, being treated for possible acute IPF exacerbation. Pt recently had evaluation at IPF center in [place] Pt was empirically started on abx. No signs of sepsis, will d/c today On steroids- Taper to 60q 12hrs today Not needing high flow Titrate FiO2 as tolerated GERD precautions Will c/w PPI Pirfenidone on hold c/w mucomyst c/w Coumadin for A.fib, rate controlled c/w nebs prn OOB to chair Can be transferred to [facility] medical floor D/w RN at bedside D/w Dr Yoo
[2018-07-03] MEDS ORDERED: Vancomycin Trough Check NOTE FOLLOW UP ONE (11:30)
[2018-07-03] MEDS: Bisacodyl SUPP* 10 MG SUPP PR SCH (12:40)
[2018-07-03] MEDS: Tamsulosin CAP* 0.4 MG PO SCH (17:26)
[2018-07-03] MEDS: Warfarin TAB(*) 4 MG PO SCH (17:26)
[2018-07-03] MEDS: Atorvastatin* 20 MG TAB PO SCH (21:42)
[2018-07-03] MEDS: Benzonatate CAP* 100 MG PO PRN (21:43)
[2018-07-03] MEDS: Amitriptyline TAB* 25 MG PO SCH (21:44)
[2018-07-04] MEDS: Ascorbic Acid TAB* 500 MG PO SCH ×3 (01:38→20:16)
[2018-07-04] MEDS: Magnesium Oxide TAB* 400 MG PO SCH ×2 (01:38→20:16)
[2018-07-04] MEDS: Cefepime 2 GM in Dextrose(*) 2 GM/50 ML BAG IV SCH (05:55)
[2018-07-04] MEDS: Mometasone/Formoter 200/5 MDI INH SCH ×2 (07:28→19:32)
[2018-07-04] MEDS: ACETYLCYSTEINE PO SCH ×2 (09:22→20:17)
[2018-07-04] MEDS: PTO: Pantoprazole TAB (NF) 20 MG TAB PO SCH (09:22)
[2018-07-04] MEDS: methylPREDNISolone 125 MG* 2 ML VIAL IV SCH (09:22)
[2018-07-04] MEDS: Bisacodyl SUPP* 10 MG SUPP PR SCH (09:24)
[2018-07-04] MEDS: Digoxin TAB* 0.125 MG PO SCH (09:24)
[2018-07-04] MEDS: Metoprolol Tartrate TAB* 25 MG PO SCH ×2 (09:25→20:15)
--- NOTE | 2018-07-04 14:05 | PN ---
Subjective Date of Service: 07/04/18 Interval History: Patient seen on the floor today for his initial visit with me. He is feeling better and was able to tolerate shower. he remain on oxygen 3 liters. He denies any concerns and his eager to go home. However, he normally on room air at home except during night via CPAP and now he is on oxygen 3 liters. he remains on IV cefepime, IV solumedrol. Past Medical History: Unchanged from Admission Objective Active Medications: Acetaminophen (Tylenol Tab*) 650 mg PO Q4H PRN PRN Reason: FEVER/PAIN Albuterol (Ventolin 2.5 Mg/3 Ml Neb.Keri*) 2.5 mg INH Q2H PRN PRN Reason: SOB/WHEEZING Albuterol/Ipratropium (Duoneb (Albuterol 2.5 Mg/Ipratropium 0.5 Mg)) 1 neb INH Q4H PRN PRN Reason: SOB/WHEEZING Amitriptyline HCl (Elavil Tab*) 25 mg PO 2100 [facility] Last Admin: 07/03/18 21:44 Dose: 25 mg Ascorbic Acid (Vitamin C Tab*) 500 mg PO BID [facility] Last Admin: 07/04/18 09:26 Dose: 500 mg Atorvastatin Calcium (Lipitor*) 20 mg PO 2100 [facility] Last Admin: 07/03/18 21:42 Dose: 20 mg Benzonatate (Tessalon Cap*) 100 mg PO BID PRN PRN Reason: COUGH Last Admin: 07/03/18 21:43 Dose: 100 mg Bisacodyl (Dulcolax Supp*) 10 mg [place] DAILY [facility] Last Admin: 07/04/18 09:24 Dose: Not Given Cefdinir (Cefdinir Cap (Nf)) 300 mg PO BID [facility] Digoxin (Lanoxin Tab*) 0.125 mg PO DAILY [facility] Last Admin: 07/04/18 09:24 Dose: 0.125 mg Magnesium Oxide (Magox 400 Tab*) 400 mg PO DAILY@2100 [facility] Last Admin: 07/04/18 01:38 Dose: Not Given Melatonin (Melatonin) 3 mg PO BEDTIME [facility] Last Admin: 07/03/18 21:44 Dose: 3 mg Metoprolol Tartrate (Lopressor Tab*) 25 mg PO BID [facility] Mometasone Furoate/Formoterol Fumar (Dulera 200/5 Mdi*) 2 puff INH BID [facility] Last Admin: 07/04/18 07:28 Dose: 2 puff Pto Acetylcysteine (750 Mg Capsules) 1 dose PO BID [facility] Last Admin: 07/04/18 09:22 Dose: 1 dose Pantoprazole Sodium (Protonix Tab (Nf)) 20 mg PO DAILY [facility] Last Admin: 07/04/18 09:22 Dose: 20 mg Prednisone (Deltasone Tab*) 20 mg PO BID [facility] Tamsulosin HCl (Flomax Cap*) 0.4 mg PO QPM [facility] Last Admin: 07/03/18 17:26 Dose: 0.4 mg Warfarin Sodium (Coumadin Tab(*)) 6 mg PO Th@1700 [facility]; Protocol Last Admin: 07/01/18 17:38 Dose: 6 mg Warfarin Sodium (Coumadin Tab(*)) 4 mg PO SuMoTuWeFrSa@1700 [facility]; Protocol Last Admin: 07/03/18 17:26 Dose: 4 mg Vital Signs - 8 hr 07/04/18 07/04/18 07/04/18 07:29 07:33 08:00 Temperature 96.9 F Pulse Rate 97 74 Respiratory 20 18 18 Rate Blood Pressure 140/74 (mmHg) O2 Sat by Pulse 100 100 Oximetry 07/04/18 07/04/18 09:24 11:15 Temperature 98.2 F Pulse Rate 80 105 Respiratory 22 Rate Blood Pressure 127/66 (mmHg) O2 Sat by Pulse 99 Oximetry Oxygen Devices in Use Now: Nasal Cannula Appearance: awake alert. no distress. Eyes: PERRLA Ears/Nose/Mouth/Throat: NL Teeth, Lips, Gums Neck: NL Appearance and Movements; NL JVP, Trachea Midline Respiratory: Symmetrical Chest Expansion and Respiratory Effort, Clear to Auscultation Cardiovascular: No Edema, - - irregularly irregular Abdominal: NL Sounds; No Tenderness; No Distention Extremities: No Edema Neurological: Alert and Oriented x 3, NL Muscle Strength and Tone Result Diagrams: 07/02/18 06:08 07/02/18 06:08 Microbiology and Other Data: Microbiology 07/01/18 11:44 Aerobic Blood Culture - Preliminary Blood Venous No Growth Day 3 Anaerobic Blood Culture - Preliminary No Growth Day 3 07/01/18 11:38 Aerobic Blood Culture - Preliminary Blood Venous No Growth Day 3 Anaerobic Blood Culture - Preliminary No Growth Day 3 07/01/18 19:14 Nasal Screen MRSA (PCR) - Final Nasal Mrsa Not Detected 07/01/18 17:00 Legionella Urinary Antigen - Final Urine Negative Legionella Antigen Streptococcus pneumoniae Ag Screen - Final Negative S. pneumo Antigen 07/01/18 15:40 Influenza Types A,B Antigen - Final Nasopharyngeal Specimen received for Influenza A/B Molecular testing Assess/Plan/Problems-Billing Assessment: 82 year old male with history of pulmonary fibrosis admitted for acute respiratory failure, tacchypnea - Patient Problems (1) Respiratory failure, [id number] Current Visit: Yes Status: Resolved Code(s): J96.20 - ACUTE AND CHR RESP FAILURE, UNSP W HYPOXIA OR HYPERCAPNIA SNOMED Code(s): 32696065 Comment: - Due to exacerbations of IPF complicated with new drug regimen ( pirfenidone #5-27% reported to cause URI) - Pirgenidone on hold. - Will taper his solumedrol to po prednisone 20 mg bid - Will try to see if qualify for home oxygen continuous. He is on 3 liter today - All culture negative including viral. currently on cefepime will change to cefdinir. will add azithromycin empirically as we could not get sputum culture (2) IPF (idiopathic pulmonary fibrosis) Current Visit: Yes Status: Chronic Code(s): J84.112 - IDIOPATHIC PULMONARY FIBROSIS SNOMED Code(s): 964382692 Comment: - It was probably the cause of his acute hypoxic respiratory failure due to exacerbations complicated with new drug regimen (pirfenidone #5- 27% reported to cause URI) - Pirgenidone on hold. - Will taper his solumedrol to po prednisone 20 mg bid - Will try to see if qualify for home oxygen continuous. He is on 3 liter today (3) Afib Current Visit: Yes Status: Chronic Code(s): I48.91 - UNSPECIFIED ATRIAL FIBRILLATION SNOMED Code(s): 35219222 Comment: - Patient on warfarin INR therapeutic. will check INR in am - I did decrease his Metoprolol even further to 25 mg bid due to sinus pause on Tele - Check dig level in am (4) DIANA (obstructive sleep apnea) Current Visit: Yes Status: Chronic Code(s): G47.33 - OBSTRUCTIVE SLEEP APNEA (ADULT) (PEDIATRIC) SNOMED Code(s): 47158862 Comment: - On CPAP wit O2 (5) Osteoarthritis Current Visit: Yes Status: Chronic Code(s): M19.90 - UNSPECIFIED OSTEOARTHRITIS, UNSPECIFIED SITE SNOMED Code(s): 228102076 Comment: - Tylenol PRN (6) IBS (irritable bowel syndrome) Current Visit: No Status: Chronic (7) History of lymphoma Current Visit: No Status: Resolved Code(s): Z85.79 - PRSNL HX OF MALIG NEOPLM OF LYMPHOID, HEMATPOETC & REL TISS SNOMED Code(s): 225529525 (8) DVT prophylaxis Current Visit: Yes Status: Acute Code(s): HOU4976 - SNOMED Code(s): 864740781 Comment: on warfarin
[2018-07-04] MEDS ORDERED: Azithromycin TAB* 250 MG PO SCH (15:00)
--- NOTE | 2018-07-04 15:12 | PN ---
Progress Note - Progress Note Date of Service: 07/04/18 - Pulmonary f/u Note: Pt seen and examined at bedside.Pt reports feeling better. Denies signficant cough or sputum production, has been using CPAP at night and with daytime anos, is on 2-3 L o2 Active Medications Generic Name Dose Route Start Last Admin Trade Name Freq PRN Reason Stop Dose Admin Acetaminophen 650 mg 07/01/18 15:43 Tylenol Tab* PO Q4H PRN FEVER/PAIN Albuterol 2.5 mg 07/01/18 15:43 Ventolin 2.5 Mg/3 Ml Neb.Keri* INH Q2H PRN SOB/WHEEZING Albuterol/Ipratropium 1 neb 07/03/18 07:43 Duoneb (Albuterol 2.5 Mg/Ipratropium 0.5 Mg) INH Q4H PRN SOB/WHEEZING Amitriptyline HCl 25 mg 07/01/18 21:00 07/03/18 21:44 Elavil Tab* PO 25 mg 2100 [facility] Administration Ascorbic Acid 500 mg 07/03/18 22:30 07/04/18 09:26 Vitamin C Tab* PO 500 mg BID [facility] Administration Atorvastatin Calcium 20 mg 07/01/18 21:00 07/03/18 21:42 Lipitor* PO 20 mg 2100 [facility] Administration Azithromycin 250 mg 07/04/18 15:00 Zithromax Tab* PO Q24H [facility] Benzonatate 100 mg 07/02/18 14:25 07/03/18 21:43 Tessalon Cap* PO 100 mg BID PRN Administration COUGH Bisacodyl 10 mg 07/03/18 09:00 07/04/18 09:24 Dulcolax Supp* MS Not Given DAILY [facility] Cefdinir 300 mg 07/04/18 21:00 Cefdinir Cap (Nf) PO BID [facility] Digoxin 0.125 mg 07/02/18 09:00 07/04/18 09:24 Lanoxin Tab* PO 0.125 mg DAILY [facility] Administration Magnesium Oxide 400 mg 07/03/18 21:00 07/04/18 01:38 Magox 400 Tab* PO Not Given DAILY@2100 [facility] Melatonin 3 mg 07/02/18 21:30 07/03/18 21:44 Melatonin PO 3 mg BEDTIME [facility] Administration Metoprolol Tartrate 25 mg 07/04/18 21:00 Lopressor Tab* PO BID [facility] Mometasone Furoate/Formoterol Fumar 2 puff 07/01/18 21:00 07/04/18 07:28 Dulera 200/5 Mdi* INH 2 puff BID [facility] Administration Pto Acetylcysteine 1 dose 07/02/18 21:00 07/04/18 09:22 750 Mg Capsules PO 1 dose BID [facility] Administration Pantoprazole Sodium 20 mg 07/02/18 09:00 07/04/18 09:22 Protonix Tab (Nf) PO 20 mg DAILY [facility] Administration Prednisone 20 mg 07/04/18 21:00 Deltasone Tab* PO BID [facility] Tamsulosin HCl 0.4 mg 07/01/18 18:00 07/03/18 17:26 Flomax Cap* PO 0.4 mg QPM [facility] Administration Warfarin Sodium 6 mg 07/01/18 17:00 07/01/18 17:38 Coumadin Tab(*) PO 6 mg Th@1700 [facility] Administration Protocol Warfarin Sodium 4 mg 07/02/18 17:00 07/03/18 17:26 Coumadin Tab(*) PO 4 mg SuMoTuWeFrSa@1700 [facility] Administration Protocol Vital Signs Temp Pulse Resp BP Pulse Ox 98.2 F 105 22 127/66 99 07/04/18 11:15 07/04/18 11:15 07/04/18 11:15 07/04/18 11:15 07/04/18 11:15 O/E: Pt in NAD, sitting in bed HEENT: PERRLA, No JVD Lungs: Crackles posteriorly b/l CVS: S1, S2+, regular Abd: Soft, BS+ Ext: No edema Neuro: No focal deficits Skin: no rash Labs: No new labs CXR: Personally reviewed by me- B/l air space opacities with interstitial prominence I/R: 82 y o m with h/o IPF, recently started on Pirfedinone, a/w gen malaise, worsening SOB, hypoxic resp failure, being treated for possible acute IPF exacerbation. Pt recently had evaluation at IPF center in [place] Pt was empirically started on abx. No signs of sepsis, can d/c On steroids- Tapered to 40mg daily, will continue with slow taper by 5mg weekly starting at 40mg O2 requirements to be evaluated prior to d/c GERD precautions Will c/w PPI Pirfenidone on hold, pt not decided regarding restarting c/w mucomyst c/w Coumadin for A.fib, rate controlled c/w nebs prn OOB to chair Possible d/c in am with arrangements for home O2 Pt agreeable to treatment plan D/w Dr Pozo
[2018-07-04] MEDS: Tamsulosin CAP* 0.4 MG PO SCH (16:36)
[2018-07-04] MEDS: Warfarin TAB(*) 4 MG PO SCH (16:36)
[2018-07-04] MEDS: Atorvastatin* 20 MG TAB PO SCH (20:15)
[2018-07-04] MEDS: Melatonin 3 MG TAB PO SCH (20:15)
[2018-07-04] MEDS: predniSONE TAB* 20 MG PO SCH (20:15)
[2018-07-04] MEDS: Amitriptyline TAB* 25 MG PO SCH (20:16)
[2018-07-04] MEDS: CEFDINIR 300 MG PO SCH (20:16)
[2018-07-05] MEDS: Mometasone/Formoter 200/5 MDI INH SCH (08:01)
[2018-07-05] MEDS: Bisacodyl SUPP* 10 MG SUPP PR SCH (08:37)
[2018-07-05] MEDS: ACETYLCYSTEINE PO SCH (08:40)
[2018-07-05] MEDS: Ascorbic Acid TAB* 500 MG PO SCH (08:40)
[2018-07-05] MEDS: Metoprolol Tartrate TAB* 25 MG PO SCH (08:40)
[2018-07-05] MEDS: CEFDINIR 300 MG PO SCH (08:40)
[2018-07-05] MEDS: predniSONE TAB* 20 MG PO SCH (08:40)
[2018-07-05] MEDS: Digoxin TAB* 0.125 MG PO SCH (08:40)
[2018-07-05] MEDS: PTO: Pantoprazole TAB (NF) 20 MG TAB PO SCH (08:40)
[2018-07-05] MEDS ORDERED: predniSONE TAB* 20 MG PO ONE (09:01)
[2018-07-05 10:02] LABS: ABS Basophils 0 10^3/ul (0-0.2); ABS Eosinophils 0 10^3/ul (0-0.6); ABS Lymphocytes 1.4 10^3/ul (1.0-4.8); ABS Monocytes 0.6 10^3/ul (0-0.8); ABS Neutrophils 8.2 10^3/ul (1.5-7.7); ABS Nucleated RBC 0 10^3/ul; Eosinophil % 0.1 % (0-6); Hematocrit 43 % (42-52); Hemoglobin 14.1 g/dl (14.0-18.0); Lymphocyte % 13.3 % (25-47); Mean Corpuscular HGB Conc 33 g/dl (31-36); Mean Corpuscular Hemoglobin 32 pg (27-31); Mean Corpuscular Volume 96 fL (80-94); Mean Platelet Volume 7.8 fL (7.4-10.4); Nucleated Red Blood Cells % 0.1; Platelet Count 139 10^3/ul (150-450); Red Blood Count 4.47 10^6/ul (4.00-5.40); Red Cell Distribution Width 14 % (10.5-15); White Blood Count 10.3 10^3/ul (3.5-10.8)
[2018-07-05 10:12] LABS: INR 2.81 (0.77-1.02)
[2018-07-05 10:22] LABS: EGFR Non-African American 116.1 (>60)
[2018-07-05 11:14] VITALS: BP 130/63
--- NOTE | 2018-07-05 11:58 | PN ---
Progress Note - Progress Note Date of Service: 07/05/18 - Pulm f/unote Note: Pt seen and examined at bedside. No acute events o/n. Pt reports significant improvement in SOB. Denies significant cough or sputum production. Active Medications Generic Name Dose Route Start Last Admin Trade Name Freq PRN Reason Stop Dose Admin Acetaminophen 650 mg 07/01/18 15:43 Tylenol Tab* PO Q4H PRN FEVER/PAIN Albuterol 2.5 mg 07/01/18 15:43 Ventolin 2.5 Mg/3 Ml Neb.Keri* INH Q2H PRN SOB/WHEEZING Albuterol/Ipratropium 1 neb 07/03/18 07:43 Duoneb (Albuterol 2.5 Mg/Ipratropium 0.5 Mg) INH Q4H PRN SOB/WHEEZING Amitriptyline HCl 25 mg 07/01/18 21:00 07/04/18 20:16 Elavil Tab* PO 25 mg 2100 [facility] Administration Ascorbic Acid 500 mg 07/03/18 22:30 07/05/18 08:40 Vitamin C Tab* PO 500 mg BID [facility] Administration Atorvastatin Calcium 20 mg 07/01/18 21:00 07/04/18 20:15 Lipitor* PO 20 mg 2100 [facility] Administration Azithromycin 250 mg 07/04/18 15:00 07/04/18 16:36 Zithromax Tab* PO 250 mg Q24H [facility] Administration Benzonatate 100 mg 07/02/18 14:25 07/03/18 21:43 Tessalon Cap* PO 100 mg BID PRN Administration COUGH Bisacodyl 10 mg 07/03/18 09:00 07/05/18 08:37 Dulcolax Supp* NE Not Given DAILY [facility] Cefdinir 300 mg 07/04/18 21:00 07/05/18 08:40 Cefdinir Cap (Nf) PO 300 mg BID [facility] Administration Digoxin 0.125 mg 07/02/18 09:00 07/05/18 08:40 Lanoxin Tab* PO 0.125 mg DAILY [facility] Administration Magnesium Oxide 400 mg 07/03/18 21:00 07/04/18 20:16 Magox 400 Tab* PO 400 mg DAILY@2100 [facility] Administration Melatonin 3 mg 07/02/18 21:30 07/04/18 20:15 Melatonin PO 3 mg BEDTIME [facility] Administration Metoprolol Tartrate 25 mg 07/04/18 21:00 07/05/18 08:40 Lopressor Tab* PO 25 mg BID [facility] Administration Mometasone Furoate/Formoterol Fumar 2 puff 07/01/18 21:00 07/05/18 08:01 Dulera 200/5 Mdi* INH 2 puff BID [facility] Administration Pto Acetylcysteine 1 dose 07/02/18 21:00 07/05/18 08:40 750 Mg Capsules PO 1 dose BID [facility] Administration Pantoprazole Sodium 20 mg 07/02/18 09:00 07/05/18 08:40 Protonix Tab (Nf) PO 20 mg DAILY [facility] Administration Prednisone 40 mg 07/06/18 09:00 Deltasone Tab* PO DAILY [facility] Tamsulosin HCl 0.4 mg 07/01/18 18:00 07/04/18 16:36 Flomax Cap* PO 0.4 mg QPM [facility] Administration Warfarin Sodium 6 mg 07/01/18 17:00 07/01/18 17:38 Coumadin Tab(*) PO 6 mg Th@1700 [facility] Administration Protocol Warfarin Sodium 4 mg 07/02/18 17:00 07/04/18 16:36 Coumadin Tab(*) PO 4 mg SuMoTuWeFrSa@1700 [facility] Administration Protocol Vital Signs Temp Pulse Resp BP Pulse Ox 97.4 F 60 18 130/63 100 07/05/18 11:10 07/05/18 11:10 07/05/18 11:10 07/05/18 11:10 07/05/18 11:10 O/E: Pt in NAD, sitting in bed HEENT: PERRLA, No JVD Lungs: Crackles posteriorly b/l CVS: S1, S2+, regular Abd: Soft, BS+ Ext: No edema Neuro: No focal deficits Skin: no rash Laboratory Results - last 24 hr 07/05/18 07/05/18 07/05/18 09:51 09:51 09:51 WBC 10.3 RBC 4.47 Hgb 14.1 Hct 43 MCV 96 H MCH 32 H MCHC 33 RDW 14 Plt Count 139 L MPV 7.8 Neut % (Auto) 79.8 Lymph % (Auto) 13.3 L [place] % (Auto) 6.3 Eos % (Auto) 0.1 Baso % (Auto) 0.5 Absolute Neuts (auto) 8.2 H Absolute Lymphs (auto) 1.4 Absolute Monos (auto) 0.6 Absolute Eos (auto) 0 Absolute Basos (auto) 0 Absolute Nucleated RBC 0 Nucleated RBC % 0.1 INR (Anticoag Therapy) 2.81 H Sodium 136 Potassium 4.3 Chloride 102 Carbon Dioxide 27 Anion Gap 7 BUN 21 Creatinine 0.66 L Est GFR ( Amer) 140.5 Est GFR (Non-Af Amer) 116.1 BUN/Creatinine Ratio 31.8 H Glucose 128 H Calcium 9.4 Phosphorus 2.6 Magnesium 2.4 TSH 1.16 Free T4 0.85 Digoxin 1.0 CXR: Personally reviewed by me- B/l air space opacities with interstitial prominence I/R: 82 y o m with h/o IPF, recently started on Pirfedinone, a/w gen malaise, worsening SOB, hypoxic resp failure, being treated for possible acute IPF exacerbation. Pt recently had evaluation at IPF center in [place] Pt was empirically started on abx. D/C Azithromycin, d/c Cefdinir after 7 day course total On steroids- Tapered to 40mg daily, will continue with slow taper by 5mg weekly starting at 40mg O2 requirements to be evaluated prior to d/c, 6MWT prior to d/c GERD precautions Will c/w PPI Pirfenidone on hold, pt not decided regarding restarting, might try low dose when resp status improved c/w mucomyst c/w Coumadin for A.fib, rate controlled c/w nebs prn D/C home today with arrangements for portable O2 concentrator C/w CPAP at night and with daytime naps, pt complaint wiht CPAP and reports benefit Will f/u in pulm clinic in 2-3 weeks D/w Dr Pozo
--- NOTE | 2018-07-05 14:35 | PN ---
Subjective Date of Service: 07/05/18 Interval History: Patient seen today doing well. Much better. able to finish complete sentence. cleared by pulmonary for discharge. We are in the process to arrange for O2 at home continuously Past Medical History: Unchanged from Admission Objective Active Medications: Acetaminophen (Tylenol Tab*) 650 mg PO Q4H PRN PRN Reason: FEVER/PAIN Albuterol (Ventolin 2.5 Mg/3 Ml Neb.Keri*) 2.5 mg INH Q2H PRN PRN Reason: SOB/WHEEZING Albuterol/Ipratropium (Duoneb (Albuterol 2.5 Mg/Ipratropium 0.5 Mg)) 1 neb INH Q4H PRN PRN Reason: SOB/WHEEZING Amitriptyline HCl (Elavil Tab*) 25 mg PO 2100 [facility] Last Admin: 07/04/18 20:16 Dose: 25 mg Ascorbic Acid (Vitamin C Tab*) 500 mg PO BID [facility] Last Admin: 07/05/18 08:40 Dose: 500 mg Atorvastatin Calcium (Lipitor*) 20 mg PO 2100 [facility] Last Admin: 07/04/18 20:15 Dose: 20 mg Azithromycin (Zithromax Tab*) 250 mg PO Q24H [facility] Last Admin: 07/04/18 16:36 Dose: 250 mg Benzonatate (Tessalon Cap*) 100 mg PO BID PRN PRN Reason: COUGH Last Admin: 07/03/18 21:43 Dose: 100 mg Bisacodyl (Dulcolax Supp*) 10 mg DE DAILY [facility] Last Admin: 07/05/18 08:37 Dose: Not Given Cefdinir (Cefdinir Cap (Nf)) 300 mg PO BID [facility] Last Admin: 07/05/18 08:40 Dose: 300 mg Digoxin (Lanoxin Tab*) 0.125 mg PO DAILY [facility] Last Admin: 07/05/18 08:40 Dose: 0.125 mg Magnesium Oxide (Magox 400 Tab*) 400 mg PO DAILY@2100 [facility] Last Admin: 07/04/18 20:16 Dose: 400 mg Melatonin (Melatonin) 3 mg PO BEDTIME [facility] Last Admin: 07/04/18 20:15 Dose: 3 mg Metoprolol Tartrate (Lopressor Tab*) 25 mg PO BID [facility] Last Admin: 07/05/18 08:40 Dose: 25 mg Mometasone Furoate/Formoterol Fumar (Dulera 200/5 Mdi*) 2 puff INH BID [facility] Last Admin: 07/05/18 08:01 Dose: 2 puff Pto Acetylcysteine (750 Mg Capsules) 1 dose PO BID [facility] Last Admin: 07/05/18 08:40 Dose: 1 dose Pantoprazole Sodium (Protonix Tab (Nf)) 20 mg PO DAILY [facility] Last Admin: 07/05/18 08:40 Dose: 20 mg Prednisone (Deltasone Tab*) 40 mg PO DAILY [facility] Tamsulosin HCl (Flomax Cap*) 0.4 mg PO QPM [facility] Last Admin: 07/04/18 16:36 Dose: 0.4 mg Warfarin Sodium (Coumadin Tab(*)) 6 mg PO Th@1700 [facility]; Protocol Last Admin: 07/01/18 17:38 Dose: 6 mg Warfarin Sodium (Coumadin Tab(*)) 4 mg PO SuMoTuWeFrSa@1700 [facility]; Protocol Last Admin: 07/04/18 16:36 Dose: 4 mg Vital Signs - 8 hr 07/05/18 07/05/18 07/05/18 08:00 11:10 13:17 Temperature 97.4 F Pulse Rate 60 Respiratory 18 18 Rate Blood Pressure 130/63 (mmHg) O2 Sat by Pulse 100 86 Oximetry Oxygen Devices in Use Now: Nasal Cannula Appearance: awake, alert. no distress Eyes: No Scleral Icterus, PERRLA, - - EOMI Ears/Nose/Mouth/Throat: Clear Oropharnyx Neck: NL Appearance and Movements; NL JVP, Trachea Midline Respiratory: Symmetrical Chest Expansion and Respiratory Effort, - - crakles, scaterred wheezes Cardiovascular: NL Sounds; No Murmurs; No JVD, RRR Abdominal: NL Sounds; No Tenderness; No Distention Skin: No Rash or Ulcers Neurological: Alert and Oriented x 3 Result Diagrams: 07/05/18 09:51 07/05/18 09:51 Microbiology and Other Data: Microbiology 07/01/18 11:44 Aerobic Blood Culture - Preliminary Blood Venous No Growth Day 3 Anaerobic Blood Culture - Preliminary No Growth Day 3 07/01/18 11:38 Aerobic Blood Culture - Preliminary Blood Venous No Growth Day 3 Anaerobic Blood Culture - Preliminary No Growth Day 3 07/01/18 19:14 Nasal Screen MRSA (PCR) - Final Nasal Mrsa Not Detected 07/01/18 17:00 Legionella Urinary Antigen - Final Urine Negative Legionella Antigen Streptococcus pneumoniae Ag Screen - Final Negative S. pneumo Antigen 07/01/18 15:40 Influenza Types A,B Antigen - Final Nasopharyngeal Specimen received for Influenza A/B Molecular testing Assess/Plan/Problems-Billing Assessment: 82 year old male with history of pulmonary fibrosis admitted for acute respiratory failure, tacchypnea - Patient Problems (1) Respiratory failure, [id number] Current Visit: Yes Status: Resolved Code(s): J96.20 - ACUTE AND CHR RESP FAILURE, UNSP W HYPOXIA OR HYPERCAPNIA SNOMED Code(s): 60589355 Comment: - Due to exacerbations of IPF complicated with new drug regimen ( pirfenidone #5-27% reported to cause URI) - Pirgenidone on hold. - Will taper his po prednisone 40 daily and 5 mg taper per week until seen by dr. Ramsey - Will set up fro home oxygen continuous. - All culture negative including viral. currently on cefepime i did change to cefdinir. I added azithromycin empirically as we could not get sputum culture (2) IPF (idiopathic pulmonary fibrosis) Current Visit: Yes Status: Chronic Code(s): J84.112 - IDIOPATHIC PULMONARY FIBROSIS SNOMED Code(s): 924860621 Comment: - Due to exacerbations of IPF complicated with new drug regimen ( pirfenidone #5-27% reported to cause URI) - Pirgenidone on hold. - Will taper his po prednisone 40 daily and 5 mg taper per week until seen by dr. Ramsey - Will set up fro home oxygen continuous. - All culture negative including viral. currently on cefepime i did change to cefdinir. I added azithromycin empirically as we could not get sputum culture (3) Afib Current Visit: Yes Status: Chronic Code(s): I48.91 - UNSPECIFIED ATRIAL FIBRILLATION SNOMED Code(s): 29913716 Comment: - Patient on warfarin INR therapeutic. - I did decrease his Metoprolol even further to 25 mg bid due to sinus pause on Tele - Check dig level this am is 1.0 (4) DIANA (obstructive sleep apnea) Current Visit: Yes Status: Chronic Code(s): G47.33 - OBSTRUCTIVE SLEEP APNEA (ADULT) (PEDIATRIC) SNOMED Code(s): 52384775 Comment: - On CPAP wit O2 (5) Osteoarthritis Current Visit: Yes Status: Chronic Code(s): M19.90 - UNSPECIFIED OSTEOARTHRITIS, UNSPECIFIED SITE SNOMED Code(s): 949553877 Comment: - Tylenol PRN (6) IBS (irritable bowel syndrome) Current Visit: No Status: Chronic (7) DVT prophylaxis Current Visit: Yes Status: Acute Code(s): HJI5244 - SNOMED Code(s): 685194967 Comment: on warfarin
--- NOTE | 2018-07-06 07:24 | DS ---
DISCHARGE SUMMARY: DATE OF ADMISSION: 07/01/18 DATE OF DISCHARGE: 07/05/18 FINAL DISCHARGE DIAGNOSES: 1. Respiratory failure, acute on chronic, secondary to exacerbation of his idiopathic pulmonary fibr osis. 2. Idiopathic pulmonary fibrosis. 3. Atrial fibrillation, chronic. 4. Obstructive sleep apnea. 5. Osteoarthritis. 6. Irritable bowel syndrome. 7. Hypoxemia secondary to idiopathic pulmonary fibrosis. HOSPITAL COURSE: The patient presented to [facility] on 07/01/18 with chief complaint of shortne ss of breath, weakness, and nausea. He has underlying disease of idiopathic pulmonary fibrosis, who was recently started on a new medication pirfenidone in a study he was in [place] and he underwe nt an array of tests to get enrolled and he qualified for the medication and he was initiated on a ta per up therapy with 1 capsule 3 times a day for a week, then 2 capsules 3 times a day for week, and 3 capsules 3 times a day, and maintain, and of this 3rd week, he started developed some nausea, vomiti ng, GI upset, and severe fatigue associated with shortness of breath and on the day of admission in [facility] emergency room, the patient was quite tachypneic with a blood pressure of 92/64, respiratory 27, a febrile with audible diffuse wheezing, and his diagnostic study at that time revealed normal white co unt; however, positive pH for alkalosis of 7.56, CO2 of 28, and he was admitted for acute hypoxia as his PO2 was low with saturation of 82% and he was maintained on Vapotherm and was admitted to the ICU . The patient was seen by the barrel cooper and he was maintained on broad-spectrum empirically with a ntibiotics and high-dose steroids and he was taken off his pirfenidone and he was maintained on high- oxygen flow rate. For the next few days, he continued to do well and on 07/03/18, 2 days after, he w as to be transferred to the medical floor on a tapered dose of steroid and he was seen by me irma shannon his initial visit on 07/04/18 and he was doing well on oxygen 2 to 3 L at rest and I did change his Solu-Medrol to oral prednisone and I discontinued his IV antibiotic from cefepime to cefdinir and I did add oral azithromycin as well and today, the patient was seen and evaluated and deemed stable for discharge with outlying assessment and plan below. PHYSICAL EXAM: Please refer to my physical exam from my progress note earlier today. DISCHARGE ASSESSMENT AND PLAN: For his acute respiratory failure and hypoxemia, which was secondary to exacerbation of idiopathic pulmonary fibrosis, he was taken off his medication, pirfenidone, and I started him on prednisone 40 mg daily and will taper him by 5 mg each week until he completes the co urse. He was set up with oxygen 2 L at rest, 4 L with exertion via nasal cannula and outpatient refe rral for a portable oxygen concentration should be entertained. The patient is to continue his medic ation of cefdinir and azithromycin as outlined below on the discharge medication list. For his atrial fibrillation, he was maintained on his warfarin and I decreased his metoprolol to 25 m g b.i.d. as he did not have few instance of sinus pause on the tele, asymptomatic, and I did decrease his metoprolol, and digoxin level was checked, which was 1.0. It did, however, improve dyspnea and, therefore, I probably will consider maintaining him on this dose unless dictated otherwise by his ca rdiologist. For his obstructive sleep apnea, he was to continue his CPAP. DISCHARGE MEDICATIONS: 1. Vitamin C 500 twice a day. 2. Dulcolax 10 mg suppository. 3. Cefdinir 300 mg b.i.d. 4. Metoprolol 25 mg twice a day. 5. Dulera 200/5 two puffs twice a day. 6. Prednisone 40 mg for 1 week; then 35 for 1 week, 30 for 1 week; 25 mg 1 week; 20 mg 1 week; 15 mg 1 week; 10 mg 1 week; 5 mg 1 week and stop. 7. Albuterol inhaler. 8. The patient is to have acetylcysteine only if needed for his allergy and IV dye. 9. Lecithin 1200 mg oral twice a day. 10. Glucosamine. 11. Vitamin B12 500 mcg daily. 12. Vitamin B5 500 mg daily. 13. Thiamine 100 mg daily. 14. Vitamin D 400 units every other day. 15. Vitamin C 1000 mg 5 times a day. 16. Digoxin 0.125 every day. 17. Protonix 20 mg daily. 18. Coumadin 6 mg every . 19. Coumadin 4 mg the rest of the week. 20. Tamsulosin 0.4 mg every evening. 21. Azithromycin 250 mg every day to continue his home regimen. 22. Lipitor 20 mg daily. 23. Fluticasone nasal spray. 24. Amitriptyline 25 mg every morning. 25. Magnesium oxide 400 mg twice a day. The patient was told to discontinue his pirfenidone, discontinue his metoprolol XL, and discontinue h is los mushroom. DISCHARGE INSTRUCTIONS: The patient is to follow up with Dr. Armen Han, his primary, in 1 to 2 weeks. Follow up with Dr. Mackenzie Ramsey in 2 to 3 weeks. The patient is to take his cefdinir for 7 more days, and his prednisone until he completed the course and his azithromycin for 3 more days. Regarding the vitamin C, the patient was instructed to cut back on his vitamin C, consult his primary as he is taking 5000 mg daily. [id number]/[facility] #: [id number]
[2018-07-06] MEDS ORDERED: predniSONE TAB* 20 MG PO SCH (09:00)
== END 2018-07-05 16:00 | disposition home or self-care (01) | DRG 189 ==
LOC: ED 11:13 → ICU 15:31 → MED 07-03 12:31
PROVIDERS: ADMIT Hospitalist; ATTEND Internal Medicine
PROC: 5A09457 Assistance with Respiratory Ventilation, 24-96 Consecutive Hours, Continuous Positive Airway Pressure (ICD-10-PCS; principal; 2018-07-01)
DX: J96.21 Acute and chronic respiratory failure with hypoxia (principal); C91.50 Adult T-cell lymphoma/leukemia (HTLV-1-associated) not having achieved remission; J84.112 Idiopathic pulmonary fibrosis; I48.2 Chronic atrial fibrillation; I35.1 Nonrheumatic aortic (valve) insufficiency; G47.33 Obstructive sleep apnea (adult) (pediatric); M19.90 Unspecified osteoarthritis, unspecified site; K58.9 Irritable bowel syndrome, unspecified; Z79.2 Long term (current) use of antibiotics; Z79.84 Long term (current) use of oral hypoglycemic drugs; Z79.899 Other long term (current) drug therapy; Z88.8 Allergy status to other drugs, medicaments and biological substances; Z80.0 Family history of malignant neoplasm of digestive organs; Z87.891 Personal history of nicotine dependence
CPT/HCPCS: 36415; 71045; 71275; 80048; 80053; 80162; 80202; 82803; 83605; 83735; 83880; 84100; 84145; 84439; 84443; 84484; 85025; 85379; 85610; 85652; 85730; 86140; 87040; 87252; 87641; 87899; 93005; 94640; 94660; 99285; A9270-GY; J0456; J0692; J1100; J2930; J3370; J7512; Q9967

== ENCOUNTER 2018-12-29 12:54 | Inpatient (IN) | payer MEDICARE, BC ==
[2018-12-29] MEDS ORDERED: Dexamethasone IV* 4 MG/ML 1 ML (4 MG) IV SLOW PU ONE (12:57)
[2018-12-29] MEDS ORDERED: Albuterol/Ipratropium NEB.SOL* Albuterol 2.5 MG/Ipratropium 0.5 MG 3 ML INH ONE (12:57)
--- NOTE | 2018-12-29 13:01 | ED ---
Shortness of Breath - HPI Summary HPI Summary: Pt is an 83 y/o M presenting to the ED brought in by EMS for shortness of breath. Per EMS, the pt has hx of pulmonary fibrosis, and has had increased SOB over the past couple of days. On EMS arrival, he was tachycardic and his SaO2 was 66%. When the fire department arrived, they noted their CO monitor measured higher than normal, but no other family members experienced sx. The pts daughter is present and states she feels fine. The pt c/o shortness of breath and edema x2 months. He denies CP. He has hx of AFib and pulmonary fibrosis. He denies hx of DM, HTN, and CHF. Pt s continuous improvement consultant is Dr. Ramsey. - History of Current Complaint Time Seen by Provider: 12/29/18 12:55 Hx Obtained From: Patient Onset/Duration: Gradual Onset, Lasting Days, Still Present Timing: Constant Current Severity: Moderate Dyspnea At: Rest Aggrevating Factors: Nothing Alleviating Factors: Nothing Associated Signs & Symptoms: Edema - Allergy/Home Medications Allergies/Adverse Reactions: Allergies Allergy/AdvReac Type Severity Reaction Status Date / Time tramadol Allergy Intermediate Unknown Verified 12/29/18 13:04 Reaction Details dofetilide [From Tikosyn] Allergy Unknown Verified 12/29/18 13:04 Reaction Details propafenone Allergy Unknown Verified 12/29/18 13:04 Reaction Details Home Medications: Home Medications Acetaminophen [Acetaminophen Extra Strength] 500 - 1,000 mg PO Q6HR PRN [History Confirmed 12/29/18] Albuterol inh POWDER (NF) [Proair Respiclick] 2 puff INH Q4HR PRN 12/29/18 [ History Confirmed 12/29/18] Calcium Citrate/Vitamin D3 [Calcium Citrate/Vitamin D] 2 tab PO BID 12/29/18 [ History Confirmed 12/29/18] Furosemide TAB* [Lasix TAB*] 20 mg PO DAILY 12/29/18 [History Confirmed 12/29/18 ] Glucosamine/Methylsulfonylmeth [MSM/Glucosamine 250-250 mg] 1 cap PO DAILY 12/29 [History Confirmed 12/29/18] LORazepam TAB(*) [Ativan 0.5 MG TAB (*)] 0.5 mg PO .Q4-6H PRN 12/29/18 [History Confirmed 12/29/18] Magnesium Oxide TAB* [MagOx 400 TAB*] 400 mg PO DAILY 12/29/18 [History Confirmed 12/29/18] Metoprolol Succinate XL TAB* [Toprol XL TAB*] 50 mg PO BID 12/29/18 [History Confirmed 12/29/18] Morphine ORAL.CONC BULK BOT* [Roxanol ORAL.CONC Bottle*] 5 mg PO .Q4-6H PRN 04/11 [History Confirmed 12/29/18] Mupirocin 2% OINT* [Bactroban 2 % Oint*] 1 applic TOPICAL BID 12/29/18 [History Confirmed 12/29/18] Tamsulosin CAP* [Flomax CAP*] 0.4 mg PO DAILY 12/29/18 [History Confirmed ] Vitamin B Complex TAB* [B Complex-50*] 1 tab PO DAILY 12/29/18 [History Confirmed 12/29/18] Warfarin TAB(*) [Coumadin TAB(*)] 4 mg PO DAILY 12/29/18 [History Confirmed 04/11] PMH/Surg Hx/FS Hx/Imm Hx Previously Healthy: No Endocrine/Hematology History: Denies: Hx Diabetes, Hx Systemic Lupus Erythematosus, Hx Anemia Cardiovascular History: Reports: Hx Hypercholesterolemia, Hx Valvular Heart Disease - MVP Denies: Hx Congestive Heart Failure, Hx Hypertension Respiratory History: Reports: Hx Sleep Apnea, Other Respiratory Problems/ Disorders - PULMONARY FIBROSIS, BRONCHIECTASIS Denies: Hx Asthma, Hx Chronic Obstructive Pulmonary Disease (COPD) - see lung disease GI History: Reports: Hx Irritable Bowel - ? History: Reports: Hx Benign Prostatic Hyperplasia, Hx Kidney Stones, Other Problems/Disorders - BPH Denies: Hx Dialysis, Hx Renal Disease Musculoskeletal History: Reports: Hx Arthritis - OSTEO, Other Musculoskeletal History - osteo-arthritis Denies: Hx Rheumatoid Arthritis Sensory History: Reports: Hx Cataracts, Hx Contacts or Glasses, Hx Vision Problem Denies: Hx Eye Injury, Hx Deafness, Hx Hearing Aid, Hx Hearing Problem, Other Sensory Impairments Opthamlomology History: Reports: Hx Cataracts, Hx Contacts or Glasses, Hx Vision Problem Denies: Hx Eye Injury, Other Sensory Impairments Neurological History: Reports: Other Neuro Impairments/Disorders - Essential Tremor; on propanolol - Cancer History Cancer Type, 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 Pulmonary Fibrosis. Acetelectasis/Bronch. Has had chemotherapy and radiation 1990 Hx Chemotherapy: Yes - 1990 Hx Radiation Therapy: Yes - Surgical History Surgery Procedure, Year, and Place: Tonsillectomy. Oral Surgery. Lymph Node Excision 1990. [facility] Hx Anesthesia Reactions: No Infectious Disease History: Denies: Hx Clostridium Difficile, Hx Hepatitis, Hx of Known/Suspected MRSA, Hx Shingles, Hx Tuberculosis, Hx Known/Suspected VRE, Hx Known/Suspected VRSA - Family History Known Family History: Negative: Blood Disorder - Social History Alcohol Use: Daily Alcohol Amount: 1/day Hx Substance Use: No Substance Use Type: Reports: None Hx Tobacco Use: Yes Smoking Status (MU): Former Smoker Type: Pipe Amount Used/How Often: ONCE A DAY SMOKED PIPE Length of Time of Smoking/Using Tobacco: 9 YEARS Have You Smoked in the Last Year: No Review of Systems Negative: Chest Pain Positive: Shortness Of Breath Positive: Edema All Other Systems Reviewed And Are Negative: Yes Physical Exam - Summary Physical Exam Summary: GENERAL: Patient is a well-developed and nourished male who is lying comfortable in the stretcher. Patient is in respiratory distress with increased labored breathing. HEAD AND FACE: Normocephalic EYES: PERRLA, EOMI x 2. EARS: Hearing grossly intact. MOUTH: Oropharynx within normal limits. NECK: Supple, trachea is midline, no adenopathy, no JVD, no carotid bruit. CHEST: Symmetric, no tenderness at palpation LUNGS: Increased labored breathing, crackles present in base of L lung. CVS: Regular rate and rhythm, S1 and S2 present, no murmurs or gallops appreciated. ABDOMEN: Soft, non-tender. Bowel sounds are normal. No abnormal abdominal pulsations. EXTREMITIES: Full ROM in all major joints, no cyanosis or clubbing. 3+ pitting edema bilaterally. NEURO: Alert and oriented x 3. No acute neurological deficits. Speech is normal and follows commands. SKIN: Dry and warm Triage Information Reviewed: Yes Vital Signs Reviewed: Yes Diagnostics - Laboratory Result Diagrams: 12/30/18 05:33 12/30/18 05:33 Lab Statement: Any lab studies that have been ordered have been reviewed, and results considered in the medical decision making process. - Radiology CXR Radiology Interpretation Completed By: Radiologist Summary of Radiographic Findings: DIFFUSE INTERSTITIAL AND AIRSPACE OPACIFICATION PROGRESSED FROM JULY 06, 2013, SUGGESTIVE OF ACUTE AIRSPACE DISEASE SUPERIMPOSED ON UNDERLYING CHRONIC INTERSTITIAL LUNG DISEASE. ED physician has reviewed this report. - EKG 1259 Cardiac Rate: Other Rate - 129bpm EKG Rhythm: Atrial Fibrillation ST Segment: Non-Specific Ectopy: None Summary of EKG Findings: EKG at 1259 shows atrial fibrillation with RVR at a rate of 129bpm with ST/T wave changes. Re-Evaluation - Re-Evaluation 1st re-eval Re-Evaluation Time: 14:01 Change: Improved Comment: Pt was asleep upon entering room, and reports he is feeling much better. Course/Dx - Course Course Of Treatment: Pt is an 83 y/o M presenting to the ED brought in by EMS for shortness of breath, first onset three days ago that has progressively been getting worse. [place] [employer] noted CO monitor measuring higher than normal, though no one else in the home experienced sx. Pt c/o SOB and edema. Pt denies CP. He has a notable hx of pulmonary fibrosis and AFib. Upon examination , the pt has crackles in the base of his L lung as well as 3+ pitting edema, and the pt is in respiratory distress. EKG at 1259 shows atrial fibrillation with RVR at a rate of 129bpm with ST/T wave changes. I spoke with Dr. Fletcher about admitting the pt to [facility] who recommended speaking to the satellite specialist. As of 1400, the pt is feeling much better, and was asleep on entering the room. CXR shows: DIFFUSE INTERSTITIAL AND AIRSPACE OPACIFICATION PROGRESSED FROM JULY 06, 2013, SUGGESTIVE OF ACUTE AIRSPACE DISEASE SUPERIMPOSED ON UNDERLYING CHRONIC INTERSTITIAL LUNG DISEASE. I spoke with Dr. Bermudez at 1419 of the ICU who will be accepting the pt, and recommended giving Azithromycin as well as Zosyn and 500ml fluids. He will be admitted with a dx of difficulty breathing. - Diagnoses Provider Diagnoses: Difficulty breathing - Critical Care Time Critical Care Time: 30-74 min Discharge - Sign-Out/Discharge Documenting (check all that apply): Patient Departure - Discharge Plan Condition: Stable Disposition: ADMITTED TO [facility] - Billing Disposition and Condition Condition: STABLE Disposition: Admitted to [facility] - Attestation Statements Document Initiated by Scribe: Yes Documenting Scribe: Isa Keita Provider For Whom Eloise is Documenting (Include Credential): Gregoria Lopez MD. Scribe Attestation: I, Isa Keita, scribed for Gregoria Lopez MD. on 12/30/18 at 1119. Scribe Documentation Reviewed: Yes Provider Attestation: The documentation as recorded by the scribe, Isa Keita accurately reflects the service I personally performed and the decisions made by me, Lila Lopez MD. Status of Scribe Document: Viewed Consult Consult: 1346 - I spoke with Dr. Fletcher about potentially admitting the pt to [facility], who recommended speaking with the satellite specialist. 1419 - I spoke with Dr. Bermudez who will be accepting the pt to the ICU, and recommended giving Azithromycin, Zosyn, and 500ml fluids.
[2018-12-29 13:50] LABS: ABS Lymphocytes 0.8 10^3/ul (1.0-4.8); ABS Monocytes 1.2 10^3/ul (0-0.8); ABS Neutrophils 9.6 10^3/ul (1.5-7.7); Eosinophil % 0.3 %; Hematocrit 41 % (42-52); Hemoglobin 13.4 g/dL (14.0-18.0); Lymphocyte % 6.6 %; Mean Corpuscular HGB Conc 33 g/dL (31-36); Mean Corpuscular Hemoglobin 32 pg (27-31); Mean Corpuscular Volume 100 fL (80-94); Mean Platelet Volume 8.4 fL (7.4-10.4); Nucleated Red Blood Cells % 0.1; Platelet Count 153 10^3/uL (150-450); Red Blood Count 4.13 10^6 /uL (4.18-5.48); Red Cell Distribution Width 15 % (10.5-15); White Blood Count 11.7 10^3/uL (3.5-10.8)
[2018-12-29 13:59] LABS: Activated Partial Thrombo Time 40.3 seconds (26.0-36.3); INR 4.02 (0.82-1.09)
[2018-12-29 14:07] LABS: Troponin I 0.03 ng/mL (<0.04)
[2018-12-29 14:08] LABS: Albumin 3.7 g/dL (3.2-5.2); BUN/Creatinine Ratio 19.4 (8-20); Calcium 9.9 mg/dL (8.6-10.3); EGFR African American 126.8 (>60); EGFR Non-African American 104.8 (>60); Globulin 3.7 g/dL (2-4); Magnesium 2.1 mg/dL (1.9-2.7); Potassium 4.6 mmol/L (3.5-5.0); Total Bilirubin 1.5 mg/dL (0.2-1.0); Total Protein 7.4 g/dL (6.4-8.9)
[2018-12-29] MEDS ORDERED: Piperacillin/Tazobac ADVAN(*) 3.375 GM in NS 0.9% 100 ML* 100 ML IVPB ONE (14:22)
[2018-12-29] MEDS ORDERED: Azithromycin 500 mg/250 ml NS 500 MG/250 ML BAG IVPB ONE (14:22)
[2018-12-29] MEDS ORDERED: NS 0.9% 1000 ML** 500 ML IV ONE (14:23)
[2018-12-29 14:54] LABS: Troponin I 0.04 ng/mL (<0.04)
--- NOTE | 2018-12-29 16:03 | HP ---
History of Present Illness - History of Present Illness Reason for Visit: Acute hypoxemic respiratory failure, acute rescue BPAP support History of Present Illness: 83 M with hx/o IPF with resultant chronic hypoxemic respiratory failure, AFIB with now acute on chronic hypoxemic respiratory failure with increased respiratory effort. Patient was BIBA to the ED after the FD noted that he was saturating at 66% while on suppolemental O2. In the last week, patient admits to anorexia, increasing dyspnea, decreased activity level, fatigue/malaise, and increased cough. He usually swallows his phlegm and is therefore unable to state if there is any change in color, consistency, or amount. He denies fever , chills, hemoptysis. 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) wore him out but also resulted in increase in his O2 requirement from 6L to 8L - Past Medical History Cardiac: CAD, Hyperlipidemia Pulmonary: Pneumonia, Other - IPF; Chronic hypoxemic respiratory failure [employer]LINE [employer] IN[employer]CTOR: TIA Heme/Onc: Other - T cell lymphoma, status post chemo and radiation in 1990 Musculoskeletal: Osteoarthritis Rheumatologic: Other - Past Surgical History Past Surgical History: Other - mitral valve replacement with bioprosthesis, Tonsillectomy - Past Social History Smoke: # pack years - smoked pipe x 9 years Alcohol: None Drugs: None Lives: Other - lives Review of Systems - Review of Systems Constitutional: Positive: Weakness, Malaise. Negative: Fever, Chills, Sweats Eyes: Negative: Pain, Vision Change ENT: Negative: Ear Pain, Ear Discharge, Mouth Swelling Respiratory: Positive: Cough, Dry, Shortness of Breath, SOB with Excertion. Negative: Hemoptysis, Pleuritic Pain, Sputum, Wheezing Cardiovascular: Positive: Edema. Negative: Chest Pain, Palpitations, Orthopnea Gastrointestinal: Negative: Nausea, Vomiting, Abdominal Pain, Diarrhea, Constipation, Melena Genitourinary: Negative: Dysuria, Frequency, Incontinence Musculoskeletal: Negative: Neck Pain, Shoulder Pain, Arm Pain Skin: Negative: Rash, Lesions Neurological: Positive: Weakness - Medications/Allergies Allergies/Adverse Reactions: Allergies Allergy/AdvReac Type Severity Reaction Status Date / Time tramadol Allergy Intermediate Unknown Verified 12/29/18 13:04 Reaction Details dofetilide [From Tikosyn] Allergy Unknown Verified 12/29/18 13:04 Reaction Details propafenone Allergy Unknown Verified 12/29/18 13:04 Reaction Details Exam - Exam Vital Signs: Vital Signs (72 hours) 12/29/18 12/29/18 12/29/18 12:53 12:55 13:00 Temperature 100.2 F Pulse Rate 123 126 138 Respiratory 45 40 44 Rate Blood Pressure 133/100 (mmHg) O2 Sat by Pulse 91 88 92 Oximetry 12/29/18 12/29/18 12/29/18 13:22 13:35 13:53 Temperature Pulse Rate 130 129 119 Respiratory 50 35 34 Rate Blood Pressure 106/76 93/65 (mmHg) O2 Sat by Pulse 95 95 97 Oximetry 12/29/18 12/29/18 12/29/18 13:58 14:00 14:23 Temperature Pulse Rate 132 126 119 Respiratory 43 36 36 Rate Blood Pressure 94/73 103/72 (mmHg) O2 Sat by Pulse 96 96 97 Oximetry 12/29/18 12/29/18 12/29/18 14:53 15:00 15:23 Temperature Pulse Rate 117 117 112 Respiratory 34 38 40 Rate Blood Pressure 96/74 97/53 (mmHg) O2 Sat by Pulse 98 98 98 Oximetry General: Alert, Oriented x3, Cooperative HEENT: Atraumatic, PERRLA Lungs: Other - air entry bilaterally with coarse velcro crackles Cardiovascular: Regular rate, Normal S1, Normal S2 Abdomen: Normal bowel sounds, Soft, No tenderness Extremities: No cyanosis, Other - + digital clubbing, 2+ pitting edema Neurological: Normal speech, Cranial nerves 3-12 NL Psych/Mental Status: Mental status NL Assessment/Plan - Assessment/Plan Assessment: 83 M with hx/o IPF with resultant chronic hypoxemic respiratory failure, AFIB with now acute on chronic hypoxemic respiratory failure with increased respiratory effort Plan: # Acute on chronic hypoxemic respiratory failure # Pneumonia # Pulmonary hypertension with late shunt # Bioprosthetic mitral valve # Moderate tricuspid regurgitation. # Chronic steroid dependence # LE edema - High dose steroids - concern for PCP but it will difficult to get a sample with intubating patient - sputum culture for bacterial and fungal organisms - LDH to support PCP dx - Agree with Zosyn and azithromycin - Will start Bactrim as well. Discharge on Bactrim if remains of steroids - concern for progressive cor-pulmonale- TTE with bubble - B/L LE venous duplex - Currently on vapotherm. Change to Bipap support with 05/28 and adjust to patient comfort for increased respiratory effort DVT PPX: auto-anticoagulated with supratherapeutic INR, SCD Code status: DNR/DNI Prognosis: guarded Dispo: admit to the ICU Critical care needs: acute BIPAP, acute hypoxemic respiratory failure Critical care time 70 minutes
[2018-12-29 16:51] LABS: Influenza A Molecular NEGATIVE (Negative); Influenza B Molecular NEGATIVE (Negative)
[2018-12-29] MEDS ORDERED: Sulfamethox/Trimethoprim DS 800/160* TAB PO SCH (17:00)
[2018-12-29] MEDS: Piperacillin/Tazobac ADVAN(*) 3.375 GM in NS 0.9% 100 ML* 100 ML IVPB SCH (18:34)
[2018-12-29] MEDS: methylPREDNISolone SOD 40 MG* 1 ML VIAL IV SCH (20:43)
[2018-12-29] MEDS: Melatonin 3 MG TAB PO PRN (23:43)
[2018-12-30] MEDS: Piperacillin/Tazobac ADVAN(*) 3.375 GM in NS 0.9% 100 ML* 100 ML IVPB SCH ×3 (02:25→18:18)
[2018-12-30] MEDS: methylPREDNISolone SOD 40 MG* 1 ML VIAL IV SCH ×3 (04:35→20:28)
[2018-12-30 05:54] LABS: ABS Monocytes 0.4 10^3/ul (0-0.8); Hematocrit 34 % (42-52); Hemoglobin 11.2 g/dL (14.0-18.0); Lymphocyte % 9.4 %; Mean Corpuscular HGB Conc 33 g/dL (31-36); Mean Corpuscular Hemoglobin 33 pg (27-31); Mean Corpuscular Volume 99 fL (80-94); Mean Platelet Volume 8.7 fL (7.4-10.4); Platelet Count 128 10^3/uL (150-450); Red Blood Count 3.45 10^6 /uL (4.18-5.48); Red Cell Distribution Width 15 % (10.5-15); White Blood Count 10.3 10^3/uL (3.5-10.8)
[2018-12-30 06:14] LABS: BUN/Creatinine Ratio 26.2 (8-20); Calcium 9.1 mg/dL (8.6-10.3); EGFR African American 153.5 (>60); EGFR Non-African American 126.9 (>60); Potassium 4.6 mmol/L (3.5-5.0)
[2018-12-30] MEDS: Sulfamethox/Trimethoprim DS 800/160* TAB PO SCH ×3 (09:26→20:31)
[2018-12-30] MEDS ORDERED: NS 0.9% 500 ML* 500 ML IV ONE (09:42)
[2018-12-30] MEDS: ORALSYR PO SCH (12:19)
[2018-12-30] MEDS: DIGOXIN PO SCH (12:19)
--- NOTE | 2018-12-30 12:31 | ECHO ---
*[facility]* [place] [address] Fax #: [phone] Transthoracic Echocardiogram Patient: Yolanda, Height: 70 in / Todd Ybarra 177.8 cm : 1935 Weight: 170.6 lb / Study Date: 12/30/2018 77.6 kg Age: 83 BP: 112 / 81 Gender: M BMI/BSA: 24.5 kg/m^2 HR: 83 bpm / 1.95 m^2 *Sign Builder: * Svetlana Grant [facility] *Referring Physician: * Brianne Bermudez *Reading Physician: * Usama Matthew MD Indications: SOB. History: PMH: Atrial fibrillation. Pulmonary fibrosis, resulting in pulmonary hypertension. Functional status: Following treatment plan for sleep apnea. Risk factors: Former tobacco use. Dyslipidemia. Labs, prior tests, procedures, and surgery: Valve surgery. Mitral valve replacement with a bioprosthetic valve. Conclusions Summary: 1. Impressions: The study is unchanged since the study of 07/07/2018. 2. Impressions: Severe pulmonary hypertension. 3. Left ventricle: The cavity size is normal. Wall thickness is normal. Systolic function is at the lower limits of normal. The estimated ejection fraction is 50-55%. 4. Right ventricle: Systolic pressure is mildly to moderately increased. 5. Right atrium: The atrium is mildly dilated. 6. Atrial septum: Bubble study was negative 7. Mitral valve: There is a bioprosthesis. And functioning normally. 8. Tricuspid valve: There is moderate-severe regurgitation. 9. Pulmonic valve: There is moderate regurgitation. Study data: Transthoracic echocardiogram. Procedure: Transthoracic echocardiography was performed. Image quality was fair. A bubble study was performed. Images 2 and 3. Sayra Butler DNP. Complete 2D, spectral Doppler, and color flow Doppler. Location: Bedside. Patient status: Inpatient. Patient room number: ICU-7. Rhythm: Atrial fibrillation. Findings Left ventricle: The cavity size is normal. Wall thickness is normal. Systolic function is at the lower limits of normal. The estimated ejection fraction is 50-55%. Wall motion is normal; there are no regional wall motion abnormalities. Left ventricular diastolic function parameters are indeterminate. Right ventricle: The cavity size is mildly dilated. Systolic function is normal. Systolic pressure is mildly to moderately increased. Ventricular septum: Postoperative hypokinesis of the interventricular septum is observed. There is septal flattening of the interventricular septum consistent with RV volume or pressure overload. Left atrium: The atrium is mildly to moderately dilated. Right atrium: The atrium is mildly dilated. Atrial septum: Bubble study was negative Mitral valve: There is a bioprosthesis. The leaflets are normal thickness. There is no evidence of stenosis. There is no significant regurgitation. The valve area is 1.0 cm^2. The valve area index is 0.49 cm^2/m^2. The valve area by pressure half-time is 2.1 cm^2. The valve area index by pressure half-time is 1.06 cm^2/m^2. The valve area (LVOT continuity) is 1.0 cm^2. The valve area index (LVOT continuity) is 0.49 cm^2/m^2. The mean diastolic gradient is 3.0 mm Hg. The peak diastolic gradient is 17.0 mm Hg. Aortic valve: The annulus is mildly calcified. The valve is trileaflet. There is no evidence of stenosis. There is no significant regurgitation. The valve area by the velocity-time integral method is 1.20 cm^2. The ratio of LVOT to aortic valve peak velocity is 0.42. The valve area by the peak velocity method is 1.31 cm^2. The ratio of LVOT to aortic valve mean velocity is 0.44. The valve area by the mean velocity method is 1.4 cm^2. The mean systolic gradient is 5.0 mm Hg. The peak systolic gradient is 11.0 mm Hg. Tricuspid valve: The leaflets are normal thickness. There is no evidence of stenosis. There is moderate-severe regurgitation. Hepatic jose guadalupe flow reversal is present Pulmonic valve: The leaflets are normal thickness. There is no evidence of stenosis. There is moderate regurgitation. The peak systolic gradient is 3.0 mm Hg. Aorta: Ascending aorta: The ascending aorta is appears normal. Aortic arch: The aortic arch is not visualized. The aortic root is not dilated. Pericardium: A prominent pericardial fat pad is present. There is no pericardial effusion. Pulmonary arteries: The main pulmonary artery is normal-sized. Systemic veins: Inferior vena cava: The vessel is dilated. The respirophasic diameter changes are blunted (< 50%). Measurements Left ventricle Value Ref Right atrium Value Ref ALVARADO, LAX 5.2 cm 4.2 - 5.8 SI dim, ES (H) 5.7 cm 3.4 - 5.3 ESD, LAX (H) 4.1 cm 2.5 - 4.0 ML dim, ES, A4C 4.3 cm 2.6 - 4.4 FS, LAX (L) 22 % 25 - 43 Estimated RAP 15 mm Hg --------- PW, ED, LAX 1.0 cm 0.6 - 1.0 ALVARADO 5.2 cm 4.2 - 5.8 Aortic valve Value Ref ESD (H) 4.1 cm 2.5 - 4.0 Marco A diam, ED 1.9 cm --------- FS (L) 22 % 25 - 43 Peak v, S 1.66 m/sec --------- PW, ED 1.0 cm 0.6 - 1.0 Mean v, S 1.04 m/sec --------- EF (L) 44 % 52 - 72 VTI, S 29.8 cm --------- Mass 176 g 96 - 200 Mean grad, S 5.0 mm Hg --------- Mass/bsa 90 g/m^2 50 - 102 Peak grad, S 11.0 mm Hg --------- Mass/ht 98.97 g/m --------- BRIAN, VTI 1.20 cm^2 --------- Mass/ht^2.7 37.21 g/m^2.7 --------- LVOT/AV, Vpeak ratio 0.42 --------- E', lat marco a, TDI (L) 9.0 cm/sec >=10.0 BRIAN, Vmax 1.31 cm^2 -- ------- E/e', lat marco a, 21 --------- TDI Mitral valve Value Ref E', med marco a, TDI (L) 6.7 cm/sec >=7.0 Peak E 1.85 m/sec -- ------- E/e', med marco a, 28 --------- Peak A 0.01 m/sec ----- ---- TDI Mean v, D 0.96 m/sec --------- E', avg, TDI 7.9 cm/sec --------- Decel time 222 ms ----- ---- E/e', avg, TDI (H) 24 <=14 PHT 110 ms -- ------- Mean grad, D 3.0 mm Hg --------- LVOT Value Ref Peak grad, D 17.0 mm Hg --------- Diam, S 2.00 cm --------- Peak E/A ratio 370 --------- Area 3.1 cm^2 --------- MVA, PHT 2.1 cm^2 --------- Peak cl, S 0.69 m/sec --------- Mean cl, S 0.46 m/sec --------- Pulmonic valve Value Ref Mean grad, S 1 mm Hg --------- Peak v, S 0.9 m/sec --------- SV 38 ml --------- Peak grad, S 3.0 mm Hg --------- Ventricular septum Value Ref Tricuspid valve Value Ref IVS, ED, LAX 0.9 cm 0.6 - 1.0 TR peak v (H) 3.4 m/sec <=2.8 IVS, ED 0.9 cm 0.6 - 1.0 Peak RV-RA grad, S 46 mm Hg --------- Right ventricle Value Ref Aortic root Value Ref ALVARADO, LAX 2.8 cm --------- Root diam 3.8 cm <4.1 ALVARADO minor ax, A4C (H) 4.7 cm 1.9 - 3.5 mid Ascending aorta Value Ref Pressure, S 46 mm Hg --------- AAo AP diam, S 3.4 cm --------- Left atrium Value Ref Pulmonary artery Value Ref AP dim, ES (H) 4.20 cm 3.00 - Pressure, S 43.0 mm Hg --------- 4.00 ML dim, A4C 5.4 cm --------- Inferior vena cava Value Ref SI dim, A4C 5.1 cm --------- Diam 2.5 cm --------- Vol/bsa, ES, 1-p (H) 44 ml/m^2 12 - 37 A4C Vol/bsa, ES, A/L (H) 47 ml/m^2 16 - 34 Legend: (L) and (H) laney values outside specified reference range. Prepared and electronically signed by Usama Matthew MD 12/30/2018 12:30
[2018-12-30] MEDS ORDERED: Morphine ORAL.SOLN 10 mg* 2 MG/ML UDC 5 ml PO PRN (13:03)
[2018-12-30] MEDS ORDERED: Sodium Chloride(INHALANT)0.9%* 5 ML NEB.SOLN ONE (13:06)
[2018-12-30] MEDS: Metoprolol Tartrate TAB* 25 MG PO SCH ×2 (13:07→20:28)
[2018-12-30 14:03] LABS: Magnesium 2.3 mg/dL (1.9-2.7)
[2018-12-30 14:08] LABS: Phosphorus 3.7 mg/dL (2.5-5.0)
[2018-12-30] MEDS: [UNRECOGNIZED DRUG - OTHER] PO SCH (14:24)
[2018-12-30] MEDS: [UNRECOGNIZED DRUG - OTHER] PO SCH ×2 (14:25→20:30)
[2018-12-30] MEDS: LORazepam TAB(*) 0.5 MG PO PRN ×2 (14:46→20:39)
[2018-12-30] MEDS: Azithromycin 500 mg/250 ml NS 500 MG/250 ML BAG IVPB SCH (14:48)
--- NOTE | 2018-12-30 17:41 | PN ---
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 Patient was BIBA to the ED after the FD noted that he was saturating at 66% while on suppolemental O2. In the last week, patient admits to anorexia, increasing dyspnea, decreased activity level, fatigue/malaise, and increased cough. He usually swallows his phlegm and is therefore unable to state if there is any change in color, consistency, or amount. He denies fever , chills, hemoptysis. 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 He was on vapotherm for most of the evening and then went of BIPAP at night for desaturation. Patient denies any fever. He tolerated his breakfast. He wants to pursue full hospice care at this time Vital Signs: Temp Pulse Resp BP SpO2 FiO2 98.7 F 98 20 110/79 100 100 12/30/18 16:59 12/30/18 16:00 12/30/18 16:00 12/30/18 16:00 12/30/18 16:00 12/30 16:00 Physical Exam: General: Pleasant elderly man, appears his stated age. Alert, Oriented x3, Cooperative. Mild distress due to increased WOB with use of accessory muscles HEENT: Atraumatic, PERRLA Lungs: air entry bilaterally with coarse velcro crackles Cardiovascular: Regular rate, Normal S1, Normal S2 Abdomen: Normal bowel sounds, Soft, No tenderness Extremities: No cyanosis, Other - + digital clubbing, 2+ pitting edema Neurological: Normal speech, Cranial nerves 3-12 NL Psych/Mental Status: Mental status NL Fluid Balance (Past 24 Hours): I= O= Net Intake & Output 12/28/18 12/29/18 12/30/18 12/31/18 06:59 06:59 06:59 06:59 Intake Total 889.6 952 Output Total 260 250 Balance 629.6 702 Weight 174 lb 6.17 oz Intake: IV Fluids 729.6 432 ABX - ZOSYN 194 107 NS (0.9%) 35.6 325 Oral 160 520 Output: Urine 260 Galvin 250 Other: Estimated Void Small # Voids 1 ADLs: Meal Record Start: 12/29/18 17: 54 Freq: 09,13,18 Status: Active Protocol: Created 12/29/18 17:54 System (Rec: 12/29/18 17:54 System [id number]) Document 12/30/18 09:00 [id number] (Rec: 12/30/18 11:22 [id number] ICU-C12) Document 12/30/18 13:00 [id number] (Rec: 12/30/18 14:59 [id number] ICU-C12) Intake and Output Start: 12/29/18 12: 58 Freq: Status: Active Protocol: Created 12/29/18 12:58 System (Rec: 12/29/18 12:58 System [id number]) Intake and Output Start: 12/29/18 17: 54 Freq: Q1HR Status: Active Protocol: Created 12/29/18 17:54 System (Rec: 12/29/18 17:54 System ICU-C25) Document 12/29/18 20:00 [id number] (Rec: 12/29/18 20:23 [id number] ICU-C12) Document 12/29/18 23:42 [id number] (Rec: 12/29/18 23:43 [id number] ICU-M23) Document 12/30/18 00:00 [id number] (Rec: 12/30/18 00:12 [id number] ICU-C12) Document 12/30/18 01:00 [id number] (Rec: 12/30/18 01:18 [id number] ICU-C12) Document 12/30/18 02:00 [id number] (Rec: 12/30/18 02:25 [id number] ICU-M23) Document 12/30/18 03:00 [id number] (Rec: 12/30/18 03:27 [id number] ICU-C12) Document 12/30/18 04:00 [id number] (Rec: 12/30/18 04:29 [id number] ICU-C12) Document 12/30/18 05:42 [id number] (Rec: 12/30/18 05:42 [id number] ICU-C12) Document 12/30/18 06:00 [id number] (Rec: 12/30/18 06:01 [id number] ICU-C12) Document 12/30/18 09:00 [id number] (Rec: 12/30/18 09:25 [id number] ICU-M23) Document 12/30/18 12:00 [id number] (Rec: 12/30/18 13:13 [id number] ICU-C12) Document 12/30/18 14:00 [id number] (Rec: 12/30/18 14:52 [id number] ICU-C12) Labs: Laboratory Results - last 24 hr 12/30/18 12/30/18 12/30/18 05:33 05:33 05:33 WBC 10.3 RBC 3.45 L Hgb 11.2 L Hct 34 L MCV 99 H MCH 33 H MCHC 33 RDW 15 Plt Count 128 L MPV 8.7 Neut % (Auto) 86.8 Lymph % (Auto) 9.4 Branch % (Auto) 3.5 Eos % (Auto) 0.0 Baso % (Auto) 0.3 Absolute Neuts (auto) 9.0 H Absolute Lymphs (auto) 1.0 Absolute Monos (auto) 0.4 Absolute Eos (auto) 0.0 Absolute Basos (auto) 0.0 Absolute Nucleated RBC 0.0 Nucleated RBC % 0.0 Sodium 139 Potassium 4.6 Chloride 106 Carbon Dioxide 31 Anion Gap 2 BUN 16 Creatinine 0.61 L Est GFR ( Amer) 153.5 Est GFR (Non-Af Amer) 126.9 BUN/Creatinine Ratio 26.2 H Glucose 133 H Calcium 9.1 Phosphorus 3.7 Magnesium 2.3 Troponin I 0.03 Studies: Patient Name: GEE NEGRON Medical Record#: [id number] Ordering Physician: Brianne Bermudez MD Acct.#: [id number] : 1935 Age: 83 Sex: M Location: INTENSIVE CARE UNIT Exam Date: 12/30/18 0600 ADM Status: ADM IN Order Information: CHEST AP OR PORT Accession Number: [id number] CPT: 11498 HISTORY: PNEUMONIA COMPARISONS: December 29, 2018 VIEWS: 1: frontal AP view of the chest at 6:19 AM FINDINGS: LINES AND TUBES: None. CARDIOMEDIASTINAL SILHOUETTE: The cardiomediastinal silhouette is normal for portable technique. PLEURA: The costophrenic angles are sharp. No pleural abnormalities are noted. LUNG PARENCHYMA: Again noted is a diffuse pattern of mixed reticular and alveolar opacification stable from the previous examination. ABDOMEN: The upper abdomen is clear. There is no subphrenic gas. BONES AND SOFT TISSUES: The patient is status post median sternotomy. 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 <Electronically signed by Rajinder Mckay MD in OV> 12/30/18743 Dictated By: Rajinder Mckay MD Dictated Date/Time: 12/30/18743 Transcribed Date/Time: 12/30/18742 Copy to: CC:Brianne Bermudez MD; Becky Santos MD; Amari Lockhart MD Imaging - [facility] Imaging - [facility] Imaging - [place] [facility] [place] [address] [place] [address] ph ([phone]) ph ([phone]) ph ([phone]) This report is only to be considered final once signed by the Provider(s) as displayed in the "<Electronically Signed by >" field (s). Absence of a signature indicates the report is in a draft status and still needs to be finalized. In the event this document was created by someone other than the signing Provider, the individual initiating the document will be listed in the "Entered by:" or "Dictated by:" hilario. 1 of 1 *[facility]* [place] [address] [address] [facility] [address] Fax #: [phone] Transthoracic Echocardiogram Patient: Yolanda, Height: 70 in / Gee Ybarra 177.8 cm : 1935 Weight: 170.6 lb / Study Date: 12/30/2018 77.6 kg Age: 83 BP: 112 / 83 Gender: M BMI/BSA: 24.5 kg/m^2 HR: 83 bpm / 1.95 m^2 *Group Underwriter: * Svetlana Grant [facility] *Referring Physician: * Brianne Bermudez *Reading Physician: Usama Beck MD Indications: SOB. History: PMH: Atrial fibrillation. Pulmonary fibrosis, resulting in pulmonary hypertension. Functional status: Following treatment plan for sleep apnea. Risk factors: Former tobacco use. Dyslipidemia. Labs, prior tests, procedures, and surgery: Valve surgery. Mitral valve replacement with a bioprosthetic valve. Conclusions Summary: 1. Impressions: The study is unchanged since the study of 07/07/2018. 2. Impressions: Severe pulmonary hypertension. 3. Left ventricle: The cavity size is normal. Wall thickness is normal. Systolic function is at the lower limits of normal. The estimated ejection fraction is 50-55%. 4. Right ventricle: Systolic pressure is mildly to moderately increased. 5. Right atrium: The atrium is mildly dilated. 6. Atrial septum: Bubble study was negative 7. Mitral valve: There is a bioprosthesis. And functioning normally. 8. Tricuspid valve: There is moderate-severe regurgitation. 9. Pulmonic valve: There is moderate regurgitation. Study data: Transthoracic echocardiogram. Procedure: Transthoracic echocardiography was performed. Image quality was fair. A bubble study was performed. Images 2 and 3. Sayra Butler DNP. Complete 2D, spectral Doppler, and color flow Doppler. Location: Bedside. Patient status: Inpatient. Patient room number: ICU-7. Rhythm: Atrial fibrillation. Findings Left ventricle: The cavity size is normal. Wall thickness is normal. Systolic function is at the lower limits of normal. The estimated ejection fraction is 50-55%. Wall motion is normal; there are no regional wall motion abnormalities. Left ventricular diastolic function parameters are indeterminate. Right ventricle: The cavity size is mildly dilated. Systolic function is normal. Systolic pressure is mildly to moderately increased. Ventricular septum: Postoperative hypokinesis of the interventricular septum is observed. There is septal flattening of the interventricular septum consistent with RV volume or pressure overload. Left atrium: The atrium is mildly to moderately dilated. Right atrium: The atrium is mildly dilated. Atrial septum: Bubble study was negative Mitral valve: There is a bioprosthesis. The leaflets are normal thickness. There is no evidence of stenosis. There is no significant regurgitation. The valve area is 1.0 cm^2. The valve area index is 0.49 cm^2/m^2. The valve area by pressure half-time is 2.1 cm^2. The valve area index by pressure half-time is 1.06 cm^2/m^2. The valve area (LVOT continuity) is 1.0 cm^2. The valve area index (LVOT continuity) is 0.49 cm^2/m^2. The mean diastolic gradient is 3.0 mm Hg. The peak diastolic gradient is 17.0 mm Hg. Aortic valve: The annulus is mildly calcified. The valve is trileaflet. There is no evidence of stenosis. There is no significant regurgitation. The valve area by the velocity-time integral method is 1.20 cm^2. The ratio of LVOT to aortic valve This report is only to be considered final once signed by the Provider(s) as displayed in the "<Electronically Signed by >" field (s). Absence of a signature indicates the report is in a draft status and still needs to be finalized. In the event this document was created by someone other than the signing Provider, the individual initiating the document will be listed in the "Entered by:" or "Dictated by:" hilario. 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 # Chronic steroid dependence # LE edema - High dose steroids - concern for PCP but it will difficult to get a sample without bronchscopy/ intubating patient - Based on elevated LDH will presumatively tx for PCP given chronic steroid use. Recommend continue with Bactrim at tx dose and d/c on Bactrim tx vs ppx if remains of steroids - sputum culture for bacterial and fungal organisms and induced sputum for PCP pending - Agree with Zosyn and azithromycin - TTE reviewed appears to be stable compared to 06/2018 - B/L LE venous duplex 12/29 negative - Currently on vapotherm. Change to Bipap support with 05/28 and adjust to patient comfort for increased respiratory effort prn and nocturnally - Patient has end stage lung disease and understands his prognosis. He wants to transition his PATH program to full hospice. - Consult to palliative/Dr Blackman to discuss goals of care DVT PPX: auto-anticoagulated with supratherapeutic INR, SCD. Restart warfarin when INR <3 Code status: DNR/DNI Prognosis: guarded Dispo: Monitor in the ICU, possible discharge to home hospice tomorrow Critical care needs: acute BIPAP, acute hypoxemic respiratory failure Critical care time 40 minutes
[2018-12-30 17:44] LABS: INR 5.65 (0.82-1.09)
[2018-12-30] MEDS: Atorvastatin* 20 MG TAB PO SCH (18:18)
[2018-12-30] MEDS: N ACETYL CYSTEINE PO SCH (20:29)
[2018-12-30] MEDS: Tamsulosin CAP* 0.4 MG PO SCH (20:31)
[2018-12-30] MEDS: Melatonin 3 MG TAB PO PRN (20:32)
[2018-12-31] MEDS: Piperacillin/Tazobac ADVAN(*) 3.375 GM in NS 0.9% 100 ML* 100 ML IVPB SCH ×3 (02:29→18:39)
[2018-12-31] MEDS: methylPREDNISolone SOD 40 MG* 1 ML VIAL IV SCH ×3 (04:58→20:48)
[2018-12-31 05:09] LABS: ABS Lymphocytes 0.6 10^3/ul (1.0-4.8); ABS Monocytes 0.8 10^3/ul (0-0.8); ABS Neutrophils 12.8 10^3/ul (1.5-7.7); Hematocrit 35 % (42-52); Hemoglobin 11.4 g/dL (14.0-18.0); Lymphocyte % 4.3 %; Mean Corpuscular HGB Conc 32 g/dL (31-36); Mean Corpuscular Hemoglobin 32 pg (27-31); Mean Corpuscular Volume 98 fL (80-94); Mean Platelet Volume 8.4 fL (7.4-10.4); Platelet Count 142 10^3/uL (150-450); Red Blood Count 3.57 10^6 /uL (4.18-5.48); Red Cell Distribution Width 15 % (10.5-15); White Blood Count 14.3 10^3/uL (3.5-10.8)
[2018-12-31 05:25] LABS: BUN/Creatinine Ratio 32.8 (8-20); Calcium 9.4 mg/dL (8.6-10.3); EGFR African American 137.8 (>60); EGFR Non-African American 113.8 (>60); Magnesium 2.3 mg/dL (1.9-2.7); Phosphorus 2.7 mg/dL (2.5-5.0); Potassium 4.9 mmol/L (3.5-5.0)
[2018-12-31 06:04] LABS: INR 6.56 (0.82-1.09)
[2018-12-31] MEDS: ORALSYR PO SCH (10:36)
[2018-12-31] MEDS: DIGOXIN PO SCH (10:36)
[2018-12-31] MEDS: Sulfamethox/Trimethoprim DS 800/160* TAB PO SCH ×3 (10:36→20:48)
[2018-12-31] MEDS: Metoprolol Tartrate TAB* 25 MG PO SCH ×2 (10:37→20:48)
[2018-12-31] MEDS: N ACETYL CYSTEINE PO SCH ×2 (10:37→20:49)
[2018-12-31] MEDS: [UNRECOGNIZED DRUG - OTHER] PO SCH ×4 (10:37→20:49)
[2018-12-31] MEDS: [UNRECOGNIZED DRUG - OTHER] PO SCH (10:37)
[2018-12-31] MEDS: LORazepam TAB(*) 0.5 MG PO PRN ×2 (11:07→16:58)
[2018-12-31] MEDS ORDERED: Phytonadione IV (Adult)* 10 MG/ML 1 ML AMP IV ONE (12:15)
[2018-12-31] MEDS ORDERED: Phytonadione IV (Adult)* 5 MG in NS 0.9% 50 ML* 50 ML IV ONE (12:30)
--- NOTE | 2018-12-31 14:39 | CONSULT ---
Palliative / Hospice Consult Ordering Provider: Brianne Bermudez - Subjective Code Status: DNR Advance Directives Location: Filed at Another Location MOLST Part A Completed: Yes - on chart MOLST Part E Completed:: Yes - on chart - History or Present Illness History or Present Illness: 83yo male with pulmonary fibrosis since 2011 presented to ER with severe SOB. 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 CXR acute airspace disease, chronic interstial lung disease, Ekg afib, doppler no dvt, ECHO EF 50-55%, mod severe tricuspid regurge, severe pulmonary HTN, mod pulmonary regurge. H/H 11.4/35, BUN/Cr 22/.67 egfr 113.8 alb 3.7, tprot 7.4. Pt is an ex tob user, no etoh, no drug with 2 daughter. All history is from pt, family and old records. Pt has been having increasing SOB at home and was asking to increase his O2 had O2 sat of 70% & HR 100. Pt and family are worried about treating the SOB. Pt is enrolled in [facility] program. Lab Values: Abnormal Lab Results 12/30/18 12/31/18 12/31/18 17:08 05:00 05:00 WBC 14.3 H RBC 3.57 L Hgb 11.4 L Hct 35 L MCV 98 H MCH 32 H MCHC 32 RDW 15 Plt Count 142 L MPV 8.4 Neut % (Auto) 89.7 Lymph % (Auto) 4.3 [place] % (Auto) 5.9 Eos % (Auto) 0.0 Baso % (Auto) 0.1 Absolute Neuts (auto) 12.8 H Absolute Lymphs (auto) 0.6 L Absolute Monos (auto) 0.8 Absolute Eos (auto) 0.0 Absolute Basos (auto) 0.0 Absolute Nucleated RBC 0.0 Nucleated RBC % 0.0 INR (Anticoag Therapy) 5.65 H* 6.56 H* Sodium Potassium Chloride Carbon Dioxide Anion Gap BUN Creatinine Est GFR ( Amer) Est GFR (Non-Af Amer) BUN/Creatinine Ratio Glucose Calcium Phosphorus Magnesium 12/31/18 05:00 WBC RBC Hgb Hct MCV MCH MCHC RDW Plt Count MPV Neut % (Auto) Lymph % (Auto) [place] % (Auto) Eos % (Auto) Baso % (Auto) Absolute Neuts (auto) Absolute Lymphs (auto) Absolute Monos (auto) Absolute Eos (auto) Absolute Basos (auto) Absolute Nucleated RBC Nucleated RBC % INR (Anticoag Therapy) Sodium 139 Potassium 4.9 Chloride 105 Carbon Dioxide 32 Anion Gap 2 BUN 22 Creatinine 0.67 Est GFR ( Amer) 137.8 Est GFR (Non-Af Amer) 113.8 BUN/Creatinine Ratio 32.8 H Glucose 126 H Calcium 9.4 Phosphorus 2.7 Magnesium 2.3 Laboratory Last Values WBC 14.3 10^3/uL (3.5-10.8) H 12/31/18 05:00 RBC 3.57 10^6 /uL (4.18-5.48) L 12/31/18 05:00 Hgb 11.4 g/dL (14.0-18.0) L 12/31/18 05:00 Hct 35 % (42-52) L 12/31/18 05:00 MCV 98 fL (80-94) H 12/31/18 05:00 MCH 32 pg (27-31) H 12/31/18 05:00 MCHC 32 g/dL (31-36) 12/31/18 05:00 RDW 15 % (10.5-15) 12/31/18 05:00 Plt Count 142 10^3/uL (150-450) L 12/31/18 05:00 MPV 8.4 fL (7.4-10.4) 12/31/18 05:00 Neut % (Auto) 89.7 % 12/31/18 05:00 Lymph % (Auto) 4.3 % 12/31/18 05:00 [place] % (Auto) 5.9 % 12/31/18 05:00 Eos % (Auto) 0.0 % 12/31/18 05:00 Baso % (Auto) 0.1 % 12/31/18 05:00 Absolute Neuts (auto) 12.8 10^3/ul (1.5-7.7) H 12/31/18 05:00 Absolute Lymphs (auto) 0.6 10^3/ul (1.0-4.8) L 12/31/18 05:00 Absolute Monos (auto) 0.8 10^3/ul (0-0.8) 12/31/18 05:00 Absolute Eos (auto) 0.0 10^3/ul (0-0.6) 12/31/18 05:00 Absolute Basos (auto) 0.0 10^3/ul (0-0.2) 12/31/18 05:00 Absolute Nucleated RBC 0.0 10^3/ul 12/31/18 05:00 Nucleated RBC % 0.0 12/31/18 05:00 INR (Anticoag Therapy) 6.56 (0.82-1.09) H* 12/31/18 05:00 APTT 40.3 seconds (26.0-36.3) H 12/29/18 13:24 Patient Temperature Not Reportable 12/29/18 13:14 ABG pH 7.39 (7.35-7.45) 12/29/18 13:14 ABG pH (Temp Correct) Not Reportable 12/29/18 13:14 ABG pCO2 47 mmHg (35-45) H 12/29/18 13:14 ABG pCO2 (Temp Corrct Not Reportable 12/29/18 13:14 ABG pO2 110 mmHg (80-100) H 12/29/18 13:14 ABG pO2 (Temp Correct Not Reportable 12/29/18 13:14 ABG HCO3 27.1 mmol/L (19-31) 12/29/18 13:14 ABG O2 Saturation 99.2 % (94.0-98.0) H 12/29/18 13:14 ABG Base Excess 2.8 mmol/L (-2.0-2.0) H 12/29/18 13:14 Carbon Monoxide Screen <4.0 % (<4.0) 12/29/18 14:30 Respiration Rate Not Reportable 12/29/18 13:14 O2 Delivery Device non-breather 12/29/18 13:14 Ventilator Type Not Reportable 12/29/18 13:14 Vent Mode Not Reportable 12/29/18 13:14 FiO2 15 12/29/18 13:14 Inspiratory Time Not Reportable 12/29/18 13:14 PEEP Not Reportable 12/29/18 13:14 Pressure Support Not Reportable 12/29/18 13:14 Pressure Control Not Reportable 12/29/18 13:14 EPAP Not Reportable 12/29/18 13:14 IPAP Not Reportable 12/29/18 13:14 BiPAP Not Reportable 12/29/18 13:14 Sodium 139 mmol/L (135-145) 12/31/18 05:00 Potassium 4.9 mmol/L (3.5-5.0) 12/31/18 05:00 Chloride 105 mmol/L (101-111) 12/31/18 05:00 Carbon Dioxide 32 mmol/L (22-32) 12/31/18 05:00 Anion Gap 2 mmol/L (2-11) 12/31/18 05:00 BUN 22 mg/dL (6-24) 12/31/18 05:00 Creatinine 0.67 mg/dL (0.67-1.17) 12/31/18 05:00 Est GFR ( Amer) 137.8 (>60) 12/31/18 05:00 Est GFR (Non-Af Amer) 113.8 (>60) 12/31/18 05:00 BUN/Creatinine Ratio 32.8 (8-20) H 12/31/18 05:00 Glucose 126 mg/dL (70-100) H 12/31/18 05:00 Lactic Acid 1.9 mmol/L (0.5-2.0) 12/29/18 13:24 Calcium 9.4 mg/dL (8.6-10.3) 12/31/18 05:00 Phosphorus 2.7 mg/dL (2.5-5.0) 12/31/18 05:00 Magnesium 2.3 mg/dL (1.9-2.7) 12/31/18 05:00 Total Bilirubin 1.50 mg/dL (0.2-1.0) H 12/29/18 13:24 AST 34 U/L (13-39) 12/29/18 13:24 ALT 14 U/L (7-52) 12/29/18 13:24 Alkaline Phosphatase 65 U/L (34-104) 12/29/18 13:24 Lactate Dehydrogenase 463 U/L (140-271) H 12/29/18 13:26 Troponin I 0.03 ng/mL (<0.04) 12/30/18 05:33 B-Natriuretic Peptide 266 pg/mL (<=100) H 12/29/18 13:24 Total Protein 7.4 g/dL (6.4-8.9) 12/29/18 13:24 Albumin 3.7 g/dL (3.2-5.2) 12/29/18 13:24 Globulin 3.7 g/dL (2-4) 12/29/18 13:24 Albumin/Globulin Ratio 1.0 (1-3) 12/29/18 13:24 Influenza A (Rapid) Negative (Negative) 12/29/18 16:10 Influenza B (Rapid) Negative (Negative) 12/29/18 16:10 - Objective Active Medications: Atorvastatin Calcium (Lipitor*) 20 mg PO 1700 [facility] Last Admin: 12/30/18 18:18 Dose: 20 mg Digoxin (Lanoxin Liq* Oralsyr) 0.125 mg PO DAILY [facility] Last Admin: 12/31/18 10:36 Dose: 0.125 mg Azithromycin (Zithromax 500 Mg/250 Ml) 500 mg in 250 mls @ 250 mls/hr IVPB Q24H [facility] Last Admin: 12/30/18 14:48 Dose: 250 mls/hr Piperacillin Sod/Tazobactam (Sod 3.375 gm/ Sodium Chloride) 100 mls @ 25 mls/ hr IVPB Q8H [facility] Last Admin: 12/31/18 11:07 Dose: 25 mls/hr Lorazepam (Ativan Tab(*)) 0.25 mg PO Q6H PRN PRN Reason: ANXIETY Last Admin: 12/31/18 11:07 Dose: 0.25 mg Melatonin (Melatonin) 3 mg PO BEDTIME PRN PRN Reason: SLEEP Last Admin: 12/30/18 20:32 Dose: 3 mg Methylprednisolone Sodium Succinate (Solu-Medrol 40 Mg) 40 mg IV Q8H [facility] Last Admin: 12/31/18 14:21 Dose: 40 mg Metoprolol Tartrate (Lopressor Tab*) 25 mg PO BID [facility] Last Admin: 12/31/18 10:37 Dose: 25 mg Morphine Sulfate (Morphine Oral.Soln 10 Mg*) 5 mg PO Q4H PRN PRN Reason: PAIN Last Admin: 12/30/18 13:29 Dose: 5 mg Pt Own Med* N-Acetyl (Cysteine 750mg Cap) 1 dose PO BID [facility] Stop: 01/07/19 21:01 Last Admin: 12/31/18 10:37 Dose: 1 dose Pto Nf Med* Brayan (Magnesium Capsule) 3 admin PO DAILY [facility] Last Admin: 12/31/18 10:37 Dose: 1 admin Pto Nf Med* "[place] (Stress B" Capsule) 1 admin PO DAILY [facility] Last Admin: 12/31/18 10:37 Dose: 1 admin Non Formulary Med* ([place]) 3 admin PO BID [facility] Last Admin: 12/31/18 14:26 Dose: 3 admin Pharmacy Profile Note (Coumadin Per Pharmacy*) 1 note FOLLOW UP 1700 [facility] Last Admin: 12/30/18 18:10 Dose: Not Given Tamsulosin HCl (Flomax Cap*) 0.4 mg PO BEDTIME [facility] Last Admin: 12/30/18 20:31 Dose: 0.4 mg Trimethoprim/Sulfamethoxazole (Bactrim Ds 800/160 Tab*) 2 tab PO 0900,1400, 2100 [facility] Last Admin: 12/31/18 14:26 Dose: 2 tab Vital Signs: Vital Signs: Temp Pulse Resp BP Pulse Ox 98.7 F 89 38 106/73 90 12/31/18 11:31 12/31/18 14:00 12/31/18 14:00 12/31/18 13:30 12/31/18 14:00 Patient Weight: Weight 77.9 kg Intake and Output: Intake & Output 12/29/18 12/30/18 12/31/18 01/01/19 06:59 06:59 06:59 06:59 Intake Total 889.6 1545 Output Total 260 700 100 Balance 629.6 845 -100 Weight 79.1 kg 77.9 kg Intake: IV Fluids 729.6 725 ABX - ZOSYN 194 302 NS (0.9%) 35.6 423 Oral 160 820 Output: Urine 260 375 100 Galvin 325 Other: Estimated Void Small # Voids 1 ADLs: Meal Record Start: 12/29/18 17: 54 Freq: ,,18 Status: Active Protocol: Created 12/29/18 17:54 System (Rec: 12/29/18 17:54 System ICU-C25) Document 12/30/18 09:00 [id number] (Rec: 12/30/18 11:22 [id number] ICU-C12) Document 12/30/18 13:00 [id number] (Rec: 12/30/18 14:59 [id number] ICU-C12) Document 12/30/18 18:00 [id number] (Rec: 12/30/18 23:23 [id number] ICU-L03) Document 12/31/18 09:00 [id number] (Rec: 12/31/18 12:15 [id number] ICU-C12) Intake and Output Start: 12/29/18 12: 58 Freq: Status: Active Protocol: Created 12/29/18 12:58 System (Rec: 12/29/18 12:58 System [id number]) Intake and Output Start: 12/29/18 17: 54 Freq: 06,14,2200 Status: Active Protocol: Created 12/29/18 17:54 System (Rec: 12/29/18 17:54 System ICU-C25) Document 12/29/18 20:00 [id number] (Rec: 12/29/18 20:23 [id number] ICU-C12) Document 12/29/18 23:42 [id number] (Rec: 12/29/18 23:43 [id number] ICU-M23) Document 12/30/18 00:00 [id number] (Rec: 12/30/18 00:12 [id number] ICU-C12) Document 12/30/18 01:00 [id number] (Rec: 12/30/18 01:18 [id number] ICU-C12) Document 12/30/18 02:00 [id number] (Rec: 12/30/18 02:25 [id number] ICU-M23) Document 12/30/18 03:00 [id number] (Rec: 12/30/18 03:27 [id number] ICU-C12) Document 12/30/18 04:00 [id number] (Rec: 12/30/18 04:29 [id number] ICU-C12) Document 12/30/18 05:42 [id number] (Rec: 12/30/18 05:42 [id number] ICU-C12) Document 12/30/18 06:00 [id number] (Rec: 12/30/18 06:01 [id number] ICU-C12) Document 12/30/18 09:00 [id number] (Rec: 12/30/18 09:25 [id number] ICU-M23) Document 12/30/18 12:00 [id number] (Rec: 12/30/18 13:13 [id number] ICU-C12) Document 12/30/18 14:00 [id number] (Rec: 12/30/18 14:52 [id number] ICU-C12) Document 12/30/18 19:23 [id number] (Rec: 12/30/18 19:23 [id number] ICU-C12) Document 12/30/18 20:00 [id number] (Rec: 12/30/18 23:54 [id number] ICU-L03) Document 12/30/18 21:00 [id number] (Rec: 12/30/18 23:57 [id number] ICU-L03) Document 12/30/18 22:00 [id number] (Rec: 12/30/18 23:56 [id number] ICU-L03) Document 12/30/18 23:00 [id number] (Rec: 12/30/18 23:56 [id number] ICU-L03) Document 12/31/18 02:00 [id number] (Rec: 12/31/18 06:32 [id number] ICU-L03) Document 12/31/18 06:00 [id number] (Rec: 12/31/18 06:32 [id number] ICU-L03) Document 12/31/18 11:15 [id number] (Rec: 12/31/18 11:15 [id number] ICU-C12) Head: Normal Eyes: No Scleral Icterus Ears/Nose/Mouth/Throat: NL Teeth, Lips, Gums, Clear Oropharnyx Neck: NL Appearance and Movements; NL JVP Neurological: Alert and Oriented x 3 - Assessment Assessment: 83yo male with end stage pulmonary fibrosis hospice eligible - Plan Consult Plan (MU): Hospice Plan: Long discussion with mother, daughter and pt. Their biggest fear is not being able to treat his SOB. He didn't get much relief with morphine but did get relief with ativan. We discussed hospice and family would like to pursue it at residence if possible otherwise at home. Currently he has a poor quality of life and does realize his pulmonary disease is going to end his life. Currently he is requiring high O2 BIPAP. Spoke with family and they understand that pt will if he is taken off the BiPAP. They want to wait a few days to see how he does with antibiotic and steroids if no improvement will stop the O2. Discussed with gear cutting machine set up operator and pt's RN. KPS 20%,30% - Time On Unit Date of Evaluation: 12/31/18 Hospice Consult Time in: 11:30 Hospice Consult Time Out: 13:00 Hospice Consult Time Total: 90 > 50% of Time Spend In Counseling or Coordinating Care: Yes
[2018-12-31] MEDS: Morphine 4 MG/ML VIAL (1 ml) 4 MG/ML VIAL IV PRN ×4 (14:46→21:11)
--- NOTE | 2018-12-31 15:09 | PN ---
Date of Service: 12/31/18 Critical Care Services: Critical Care Progress Note Initialization Date: 12/30/18 17:36 Date of Service: 12/31/18 Critical Care Services: 83 M with hx/o IPF with resultant chronic hypoxemic respiratory failure, AFIB with now acute on chronic hypoxemic respiratory failure with increased respiratory effort. Patient was BIBA to the ED after the FD noted that he was saturating at 66% while on suppolemental O2. In the last week, patient admits to anorexia, increasing dyspnea, decreased activity level, fatigue/malaise, and increased cough. He usually swallows his phlegm and is therefore unable to state if there is any change in color, consistency, or amount. He denies fever , chills, hemoptysis. He feels that the walk test at his program facilitator's office (Dr Ramsey) wore him out but also resulted in increase in his O2 requirement from 6L to 8L 12/30: Patient seen and examined at the bedside. He was on vapotherm for most of the evening and then went of BIPAP at night for desaturation. Patient denies any fever. He tolerated his breakfast. He wants to pursue full hospice care at this time 12/31: Pt seen and examined at bedside. Now requires BiPAP ATC. Denies any discomfort at present. Pall care to evaluate today Physical Exam: General: Pleasant elderly man, appears his stated age. Alert, Oriented x3, Cooperative. Mild distress due to increased WOB with use of accessory muscles HEENT: Atraumatic, PERRLA Lungs: air entry bilaterally with coarse velcro crackles Cardiovascular: Regular rate, Normal S1, Normal S2 Abdomen: Normal bowel sounds, Soft, No tenderness Extremities: No cyanosis, Other - + digital clubbing, 2+ pitting edema Neurological: Normal speech, Cranial nerves 3-12 NL Psych/Mental Status: Mental status NL S: 1: frontal AP view of the chest at 6:19 AM FINDINGS: LINES AND TUBES: None. CARDIOMEDIASTINAL SILHOUETTE: The cardiomediastinal silhouette is normal for portable technique. PLEURA: The costophrenic angles are sharp. No pleural abnormalities are noted. LUNG PARENCHYMA: Again noted is a diffuse pattern of mixed reticular and alveolar opacification stable from the previous examination. ABDOMEN: The upper abdomen is clear. There is no subphrenic gas. BONES AND SOFT TISSUES: The patient is status post median sternotomy. 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 # Chronic steroid dependence # LE edema Neuro-Awake, follows commands Pall Care Consult Pulm-IPF with Acute on Chronic hypoxemic resp failure-requiring BiPAP, 100% 02 - Cont High dose steroids CV-EF 55-60%, hx of MVR Ymiy-nwppxhe-jsqt on digoxin Renal-Cr stable ID-WBC normal, afebrile -cont with Zosyn/azithromycin, bactrim GI-Diet as tolerated Heme-Hct stable INR 5.7-vitamin K 5 mg IV X1, hold warfarin DVT PPX: auto-anticoagulated with supratherapeutic INR, SCD. Restart warfarin when INR <3 Code status: DNR/DNI Prognosis: guarded Dispo: Monitor in the ICU, possible discharge to home hospice tomorrow Critical care needs: acute BIPAP, acute hypoxemic respiratory failure Critical care time 40 minutes Vital Signs: Temp Pulse Resp BP SpO2 FiO2 98.7 F 89 45 106/73 90 100 12/31/18 11:31 12/31/18 14:00 12/31/18 14:46 12/31/18 13:30 12/31/18 14:00 12/31 12:00 Fluid Balance (Past 24 Hours): I= O= Net Intake & Output 12/29/18 12/30/18 12/31/18 01/01/19 06:59 06:59 06:59 06:59 Intake Total 889.6 1545 Output Total 260 700 100 Balance 629.6 845 -100 Weight 174 lb 6.17 oz 171 lb 11.841 oz Intake: IV Fluids 729.6 725 ABX - ZOSYN 194 302 NS (0.9%) 35.6 423 Oral 160 820 Output: Urine 260 375 100 Galvin 325 Other: Estimated Void Small # Voids 1 ADLs: Meal Record Start: 12/29/18 17: 54 Freq: ,,18 Status: Active Protocol: Created 12/29/18 17:54 System (Rec: 12/29/18 17:54 System ICU-C25) Document 12/30/18 09:00 [id number] (Rec: 12/30/18 11:22 [id number] ICU-C12) Document 12/30/18 13:00 [id number] (Rec: 12/30/18 14:59 [id number] ICU-C12) Document 12/30/18 18:00 [id number] (Rec: 12/30/18 23:23 [id number] ICU-L03) Document 12/31/18 09:00 [id number] (Rec: 12/31/18 12:15 [id number] ICU-C12) Intake and Output Start: 12/29/18 12: 58 Freq: Status: Active Protocol: Created 12/29/18 12:58 System (Rec: 12/29/18 12:58 System EDRM-C18) Intake and Output Start: 12/29/18 17: 54 Freq: 06,14,2200 Status: Active Protocol: Created 12/29/18 17:54 System (Rec: 12/29/18 17:54 System ICU-C25) Document 12/29/18 20:00 [id number] (Rec: 12/29/18 20:23 [id number] ICU-C12) Document 12/29/18 23:42 [id number] (Rec: 12/29/18 23:43 [id number] ICU-M23) Document 12/30/18 00:00 [id number] (Rec: 12/30/18 00:12 [id number] ICU-C12) Document 12/30/18 01:00 [id number] (Rec: 12/30/18 01:18 [id number] ICU-C12) Document 12/30/18 02:00 [id number] (Rec: 12/30/18 02:25 [id number] ICU-M23) Document 12/30/18 03:00 [id number] (Rec: 12/30/18 03:27 [id number] ICU-C12) Document 12/30/18 04:00 [id number] (Rec: 12/30/18 04:29 [id number] ICU-C12) Document 12/30/18 05:42 [id number] (Rec: 12/30/18 05:42 [id number] ICU-C12) Document 12/30/18 06:00 [id number] (Rec: 12/30/18 06:01 [id number] ICU-C12) Document 12/30/18 09:00 [id number] (Rec: 12/30/18 09:25 [id number] ICU-M23) Document 12/30/18 12:00 HUC1260 (Rec: 12/30/18 13:13 [id number] ICU-C12) Document 12/30/18 14:00 [id number] (Rec: 12/30/18 14:52 [id number] ICU-C12) Document 12/30/18 19:23 [id number] (Rec: 12/30/18 19:23 [id number] ICU-C12) Document 12/30/18 20:00 [id number] (Rec: 12/30/18 23:54 [id number] ICU-L03) Document 12/30/18 21:00 [id number] (Rec: 12/30/18 23:57 [id number] ICU-L03) Document 12/30/18 22:00 [id number] (Rec: 12/30/18 23:56 [id number] ICU-L03) Document 12/30/18 23:00 [id number] (Rec: 12/30/18 23:56 [id number] ICU-L03) Document 12/31/18 02:00 [id number] (Rec: 12/31/18 06:32 [id number] ICU-L03) Document 12/31/18 06:00 [id number] (Rec: 12/31/18 06:32 [id number] ICU-L03) Document 12/31/18 11:15 [id number] (Rec: 12/31/18 11:15 [id number] ICU-C12) Labs: Laboratory Results - last 24 hr 12/30/18 12/31/18 12/31/18 17:08 05:00 05:00 WBC 14.3 H RBC 3.57 L Hgb 11.4 L Hct 35 L MCV 98 H MCH 32 H MCHC 32 RDW 15 Plt Count 142 L MPV 8.4 Neut % (Auto) 89.7 Lymph % (Auto) 4.3 [place] % (Auto) 5.9 Eos % (Auto) 0.0 Baso % (Auto) 0.1 Absolute Neuts (auto) 12.8 H Absolute Lymphs (auto) 0.6 L Absolute Monos (auto) 0.8 Absolute Eos (auto) 0.0 Absolute Basos (auto) 0.0 Absolute Nucleated RBC 0.0 Nucleated RBC % 0.0 INR (Anticoag Therapy) 5.65 H* 6.56 H* Sodium Potassium Chloride Carbon Dioxide Anion Gap BUN Creatinine Est GFR ( Amer) Est GFR (Non-Af Amer) BUN/Creatinine Ratio Glucose Calcium Phosphorus Magnesium 12/31/18 05:00 WBC RBC Hgb Hct MCV MCH MCHC RDW Plt Count MPV Neut % (Auto) Lymph % (Auto) [place] % (Auto) Eos % (Auto) Baso % (Auto) Absolute Neuts (auto) Absolute Lymphs (auto) Absolute Monos (auto) Absolute Eos (auto) Absolute Basos (auto) Absolute Nucleated RBC Nucleated RBC % INR (Anticoag Therapy) Sodium 139 Potassium 4.9 Chloride 105 Carbon Dioxide 32 Anion Gap 2 BUN 22 Creatinine 0.67 Est GFR ( Amer) 137.8 Est GFR (Non-Af Amer) 113.8 BUN/Creatinine Ratio 32.8 H Glucose 126 H Calcium 9.4 Phosphorus 2.7 Magnesium 2.3
[2018-12-31] MEDS: Azithromycin 500 mg/250 ml NS 500 MG/250 ML BAG IVPB SCH (16:06)
[2018-12-31] MEDS: Atorvastatin* 20 MG TAB PO SCH (16:59)
[2018-12-31] MEDS ORDERED: Warfarin TAB(*) 4 MG PO ONE (17:00)
[2018-12-31] MEDS ORDERED: Lorazepam PYXIS KEY PRN (17:13)
[2018-12-31] MEDS: Tamsulosin CAP* 0.4 MG PO SCH (20:50)
[2018-12-31] MEDS: LORazepam INJ* 2 MG/ML 1 ML VIAL IV PUSH PRN (21:12)
[2019-01-01] MEDS: Piperacillin/Tazobac ADVAN(*) 3.375 GM in NS 0.9% 100 ML* 100 ML IVPB SCH ×3 (02:43→20:33)
[2019-01-01] MEDS: Morphine 4 MG/ML VIAL (1 ml) 4 MG/ML VIAL IV PRN ×4 (04:18→20:35)
[2019-01-01] MEDS: LORazepam INJ* 2 MG/ML 1 ML VIAL IV PUSH PRN ×4 (04:21→20:36)
[2019-01-01] MEDS: methylPREDNISolone SOD 40 MG* 1 ML VIAL IV SCH ×3 (05:28→21:01)
[2019-01-01 05:30] LABS: INR 1.61 (0.82-1.09)
--- NOTE | 2019-01-01 09:48 | PN ---
Date of Service: 01/01/19 Critical Care Services: Date of Service: 12/31/18 Critical Care Services: 83 M with hx/o IPF with resultant chronic hypoxemic respiratory failure, AFIB with now acute on chronic hypoxemic respiratory failure with increased respiratory effort. Patient was BIBA to the ED after the FD noted that he was saturating at 66% while on suppolemental O2. In the last week, patient admits to anorexia, increasing dyspnea, decreased activity level, fatigue/malaise, and increased cough. He usually swallows his phlegm and is therefore unable to state if there is any change in color, consistency, or amount. He denies fever , chills, hemoptysis. He feels that the walk test at his wax machine operator's office (Dr Ramsey) wore him out but also resulted in increase in his O2 requirement from 6L to 8L 12/30: Patient seen and examined at the bedside. He was on vapotherm for most of the evening and then went of BIPAP at night for desaturation. Patient denies any fever. He tolerated his breakfast. He wants to pursue full hospice care at this time 12/31: Pt seen and examined at bedside. Now requires BiPAP ATC. Denies any discomfort at present. Pall care to evaluate today 01/01: Tolerates short periods of vaoptherm, otherwise remains on BiPAP, 100% oxygen-has not tolerated weaning Physical Exam: General: Pleasant elderly man, appears his stated age. Alert, Oriented x3, Cooperative. Mild distress due to increased WOB with use of accessory muscles HEENT: Atraumatic, PERRLA Lungs: air entry bilaterally with coarse velcro crackles Cardiovascular: Regular rate, Normal S1, Normal S2 Abdomen: Normal bowel sounds, Soft, No tenderness Extremities: No cyanosis, Other - + digital clubbing, 2+ pitting edema Neurological: Normal speech, Cranial nerves 3-12 NL Psych/Mental Status: Mental status NL CXR-pending EKG-Afib 100s 83 M with hx/o IPF with resultant chronic hypoxemic respiratory failure, AFIB, PH with now acute on chronic hypoxemic respiratory failure with increased respiratory effort Plan: # Acute on chronic hypoxemic respiratory failure # Pneumonia # Pulmonary hypertension with late shunt # Bioprosthetic mitral valve # Moderate tricuspid regurgitation. # Chronic steroid dependence # LE edema Neuro-Awake, follows commands, moves all extremities Pall Care following-plan for several more days assessment to see if condition improves Pulm-IPF with Acute on Chronic hypoxemic resp failure-requiring BiPAP, 100% 02 - Cont High dose steroids CV-EF 55-60%, hx of MVR Hhxl-nnettdw-mzay on digoxin Renal-Cr stable ID-WBC 14-likely due to steroids, leukemoid reaction Afebrile -cont with Zosyn/azithromycin, bactrim -Blood Cx-NGTD -not producing sputum -Check UA GI-Diet as tolerated Heme-Hct stable INR 1.5-received Vitamin K X1, restart low dose warfarin in 24 hours DVT PPX: , heparin subq, SCD. Code status: DNR/DNI Prognosis: guarded Dispo: Monitor in the ICU, pall care following Critical care needs: acute BIPAP, acute hypoxemic respiratory failure Critical care time 40 minutes Vital Signs: Temp Pulse Resp BP SpO2 FiO2 96.3 F 93 32 102/82 92 100 01/01/19 08:00 01/01/19 07:00 01/01/19 08:30 01/01/19 06:30 01/01/19 07:00 01/01 08:30 Physical Exam: Gen: HEENT: Lungs: Cardiac: Abdomen: Extremities: Neuro: Fluid Balance (Past 24 Hours): I= O= Net Intake & Output 12/30/18 12/31/18 01/01/19 01/02/19 06:59 06:59 06:59 06:59 Intake Total 889.6 1545 1367 Output Total 260 700 425 125 Balance 629.6 845 942 -125 Weight 174 lb 6.17 oz 171 lb 11.841 oz 172 lb 6.424 oz Intake: IV Fluids 729.6 725 186 ABX - ZOSYN 194 302 NS (0.9%) 35.6 423 186 IVPB 521 ABX - AZITHROMYCIN 250 ABX - ZOSYN 217 Vitamin K 54 Oral 160 820 660 Output: Urine 260 375 425 125 Galvin 325 Other: Estimated Void Small Large # Voids 1 ADLs: Meal Record Start: 12/29/18 17: 54 Freq: ,13,18 Status: Active Protocol: Created 12/29/18 17:54 System (Rec: 12/29/18 17:54 System ICU-C25) Document 12/30/18 09:00 [id number] (Rec: 12/30/18 11:22 [id number] ICU-C12) Document 12/30/18 13:00 [id number] (Rec: 12/30/18 14:59 [id number] ICU-C12) Document 12/30/18 18:00 [id number] (Rec: 12/30/18 23:23 [id number] ICU-L03) Document 12/31/18 09:00 [id number] (Rec: 12/31/18 12:15 [id number] ICU-C12) Document 12/31/18 13:00 [id number] (Rec: 12/31/18 16:41 [id number] ICU-C25) Intake and Output Start: 12/29/18 12: 58 Freq: Status: Active Protocol: Created 12/29/18 12:58 System (Rec: 12/29/18 12:58 System [id number]) Intake and Output Start: 12/29/18 17: 54 Freq: 06,14,2200 Status: Active Protocol: Created 12/29/18 17:54 System (Rec: 12/29/18 17:54 System ICU-C25) Document 12/29/18 20:00 [id number] (Rec: 12/29/18 20:23 [id number] ICU-C12) Document 12/29/18 23:42 [id number] (Rec: 12/29/18 23:43 [id number] ICU-M23) Document 12/30/18 00:00 [id number] (Rec: 12/30/18 00:12 [id number] ICU-C12) Document 12/30/18 01:00 [id number] (Rec: 12/30/18 01:18 [id number] ICU-C12) Document 12/30/18 02:00 [id number] (Rec: 12/30/18 02:25 [id number] ICU-M23) Document 12/30/18 03:00 CGQ9624 (Rec: 12/30/18 03:27 IIV1613 ICU-C12) Document 12/30/18 04:00 [id number] (Rec: 12/30/18 04:29 [id number] ICU-C12) Document 12/30/18 05:42 [id number] (Rec: 12/30/18 05:42 [id number] ICU-C12) Document 12/30/18 06:00 [id number] (Rec: 12/30/18 06:01 [id number] ICU-C12) Document 12/30/18 09:00 [id number] (Rec: 12/30/18 09:25 [id number] ICU-M23) Document 12/30/18 12:00 [id number] (Rec: 12/30/18 13:13 [id number] ICU-C12) Document 12/30/18 14:00 [id number] (Rec: 12/30/18 14:52 [id number] ICU-C12) Document 12/30/18 19:23 [id number] (Rec: 12/30/18 19:23 [id number] ICU-C12) Document 12/30/18 20:00 [id number] (Rec: 12/30/18 23:54 [id number] ICU-L03) Document 12/30/18 21:00 [id number] (Rec: 12/30/18 23:57 [id number] ICU-L03) Document 12/30/18 22:00 [id number] (Rec: 12/30/18 23:56 [id number] ICU-L03) Document 12/30/18 23:00 [id number] (Rec: 12/30/18 23:56 [id number] ICU-L03) Document 12/31/18 02:00 [id number] (Rec: 12/31/18 06:32 [id number] ICU-L03) Document 12/31/18 06:00 [id number] (Rec: 12/31/18 06:32 [id number] ICU-L03) Document 12/31/18 11:15 [id number] (Rec: 12/31/18 11:15 [id number] ICU-C12) Document 12/31/18 16:00 SUH1150 (Rec: 12/31/18 16:45 [id number] ICU-C25) Document 12/31/18 21:20 [id number] (Rec: 12/31/18 21:20 [id number] ICU-C12) Document 12/31/18 22:00 [id number] (Rec: 12/31/18 22:57 [id number] ICU-C25) Document 01/01/19 04:34 [id number] (Rec: 01/01/19 04:34 [id number] ICU-C12) Document 01/01/19 06:00 [id number] (Rec: 01/01/19 07:00 [id number] ICU-C25) Document 01/01/19 09:28 [id number] (Rec: 01/01/19 09:28 [id number] ICU-C14) Labs: Laboratory Results - last 24 hr 01/01/19 05:09 INR (Anticoag Therapy) 1.61 H Plan: Critical Care Time:
[2019-01-01] MEDS ORDERED: NS 0.9% 100 ML* 100 ML ONE (11:54)
[2019-01-01] MEDS: Heparin VIAL(*) 5000 UNITS/ML VIAL (FIVE THOUSAND) SUBCUT SCH ×2 (12:17→21:01)
[2019-01-01 12:52] LABS: Hematocrit 42 % (42-52); Hemoglobin 13.4 g/dL (14.0-18.0); Mean Corpuscular HGB Conc 32 g/dL (31-36); Mean Corpuscular Hemoglobin 32 pg (27-31); Mean Corpuscular Volume 99 fL (80-94); Mean Platelet Volume 9.2 fL (7.4-10.4); Platelet Count 125 10^3/uL (150-450); Red Blood Count 4.22 10^6 /uL (4.18-5.48); Red Cell Distribution Width 15 % (10.5-15); White Blood Count 16.7 10^3/uL (3.5-10.8)
[2019-01-01] MEDS: Metoprolol Tartrate TAB* 25 MG PO SCH ×2 (13:04→20:34)
[2019-01-01] MEDS: DIGOXIN PO SCH (13:04)
[2019-01-01] MEDS: [UNRECOGNIZED DRUG - OTHER] PO SCH ×2 (13:04→20:34)
[2019-01-01] MEDS: ORALSYR PO SCH (13:04)
[2019-01-01] MEDS: N ACETYL CYSTEINE PO SCH ×2 (13:04→20:34)
[2019-01-01] MEDS: [UNRECOGNIZED DRUG - OTHER] PO SCH (13:05)
[2019-01-01] MEDS: Sulfamethox/Trimethoprim DS 800/160* TAB PO SCH ×3 (13:05→20:35)
[2019-01-01 13:09] LABS: BUN/Creatinine Ratio 33.8 (8-20); Calcium 10.4 mg/dL (8.6-10.3); EGFR African American 135.4 (>60); EGFR Non-African American 111.9 (>60)
[2019-01-01 13:17] LABS: Potassium 5.4 mmol/L (3.5-5.0)
[2019-01-01 16:51] LABS: Urine Appearance Cloudy; Urine Bacteria Absent (Absent); Urine Bilirubin Negative (Negative); Urine Blood Negative (Negative); Urine Color Amber; Urine Glucose Negative (Negative); Urine Ketones Negative (Negative); Urine Nitrite Negative (Negative); Urine Protein 1+(30 mg/dL) (Negative); Urine Red Blood Cell Trace(0-2/hpf) (Absent); Urine Specific Gravity 1.027 (1.010-1.030); Urine Urobilinogen Negative (Negative); Urine White Blood Cell Trace(0-5/hpf) (Absent)
[2019-01-01] MEDS: Atorvastatin* 20 MG TAB PO SCH (17:38)
[2019-01-01] MEDS: Azithromycin 500 mg/250 ml NS 500 MG/250 ML BAG IVPB SCH (17:45)
[2019-01-01] MEDS ORDERED: Lorazepam PYXIS KEY ONE (18:20)
[2019-01-01] MEDS ORDERED: LORazepam INJ* 2 MG/ML 1 ML VIAL ONE (18:21)
[2019-01-01] MEDS ORDERED: LORazepam INJ* 2 MG/ML 1 ML VIAL IV PUSH ONE (19:00)
[2019-01-01] MEDS: Tamsulosin CAP* 0.4 MG PO SCH (20:35)
[2019-01-01] MEDS: Metoprolol Tartrate IV* 1 MG/ML 5 ML VIAL IV PRN (21:34)
[2019-01-02] MEDS: Metoprolol Tartrate IV* 1 MG/ML 5 ML VIAL IV PRN ×3 (00:04→05:05)
[2019-01-02] MEDS: Piperacillin/Tazobac ADVAN(*) 3.375 GM in NS 0.9% 100 ML* 100 ML IVPB SCH ×3 (01:43→17:07)
[2019-01-02] MEDS: methylPREDNISolone SOD 40 MG* 1 ML VIAL IV SCH ×2 (05:05→12:05)
[2019-01-02] MEDS: Morphine 4 MG/ML VIAL (1 ml) 4 MG/ML VIAL IV PRN (05:05)
[2019-01-02 06:44] LABS: INR 1.42 (0.82-1.09)
[2019-01-02] MEDS: ORALSYR PO SCH (08:07)
[2019-01-02] MEDS: [UNRECOGNIZED DRUG - OTHER] PO SCH (08:07)
[2019-01-02] MEDS: DIGOXIN PO SCH (08:07)
[2019-01-02] MEDS: Metoprolol Tartrate TAB* 25 MG PO SCH (08:07)
[2019-01-02] MEDS: [UNRECOGNIZED DRUG - OTHER] PO SCH (08:07)
[2019-01-02] MEDS: N ACETYL CYSTEINE PO SCH (08:07)
[2019-01-02] MEDS: Sulfamethox/Trimethoprim DS 800/160* TAB PO SCH ×2 (08:07→12:05)
[2019-01-02] MEDS: Heparin VIAL(*) 5000 UNITS/ML VIAL (FIVE THOUSAND) SUBCUT SCH (09:00)
[2019-01-02] MEDS: Morphine 10 MG/ML VIAL (1 ml) IV PRN ×10 (09:12→23:15)
--- NOTE | 2019-01-02 12:46 | PN ---
Progress Note - Progress Note Date of Service: 01/02/19 - Pulmonary note Note: Pt seen and examined at bedside this am. Pt known to me from out pt evaluation. Pt wiht progression of hypoxic resp failure. He has h/o IPF. He has failed out pot management and was hospitalized. Interim records were verified Pt continues to deteriorate inspite of max support including treatment for PNA and heart failure He is currently on BiPAP, responsive to painful stimuli only Active Medications Generic Name Dose Route Start Last Admin Trade Name Freq PRN Reason Stop Dose Admin Atorvastatin Calcium 20 mg 12/30/18 17:00 01/01/19 17:38 Lipitor* PO Not Given 1700 CHANDU Digoxin 0.125 mg 12/30/18 12:00 01/02/19 08:07 Lanoxin Liq* Oralsyr PO Not Given DAILY CHANDU Heparin Sodium (Porcine) 5,000 units 01/01/19 10:00 01/02/19 09:00 Heparin Vial(*) SUBCUT Not Given Q12HR CHANDU Azithromycin 500 mg in 250 mls @ 250 mls/hr 12/30/18 14:30 01/01/19 17:45 Zithromax 500 Mg/250 Ml IVPB 250 mls/hr Q24H CHANDU Administration Piperacillin Sod/Tazobactam 100 mls @ 25 mls/hr 12/29/18 18:30 01/02/19 09:28 Sod 3.375 gm/ Sodium Chloride IVPB Not Given Q8H CHANDU Lorazepam 0.5 mg 12/31/18 17:13 01/01/19 20:36 Ativan Inj* IV PUSH 0.5 mg Q4H PRN Administration ANXIETY Melatonin 3 mg 12/29/18 23:22 12/30/18 20:32 Melatonin PO 3 mg BEDTIME PRN Administration SLEEP Methylprednisolone Sodium Succinate 40 mg 12/29/18 21:00 01/02/19 12:05 Solu-Medrol 40 Mg IV Not Given Q8H CHANDU Metoprolol Tartrate 25 mg 12/30/18 12:00 01/02/19 08:07 Lopressor Tab* PO Not Given BID CHANDU Metoprolol Tartrate 5 mg 01/01/19 21:13 01/02/19 05:05 Lopressor Iv* IV 5 mg Q2H PRN Administration TACHYCARDIA Miscellaneous 1 ea 12/31/18 17:13 Ativan Pyxis Little N/A .ATIVAN IV LITTLE PRN PYXIS LITTLE Morphine Sulfate 2 mg 12/31/18 17:14 01/02/19 05:05 Morphine 4 Mg/Ml Vial (1 Ml) IV 2 mg Q2H PRN Administration PAIN Morphine Sulfate 10 mg 01/02/19 09:03 01/02/19 12:19 Morphine 10 Mg/Ml Vial (1 Ml) IV 10 mg Q1HR PRN Administration DISCOMFORT Pt Own Med* N-Acetyl 1 dose 12/30/18 21:00 01/02/19 08:07 Cysteine 750mg Cap PO 01/07/19 21:01 Not Given BID [facility] Pto Nf Med* Brayan 3 admin 12/30/18 13:00 01/02/19 08:07 Magnesium Capsule PO Not Given DAILY [facility] Pto Nf Med* "Hundred 1 admin 12/31/18 09:00 01/02/19 08:07 Stress B" Capsule PO Not Given DAILY [facility] Non Formulary Med* 3 admin 12/30/18 14:00 01/02/19 08:07 Maitake PO Not Given BID [facility] Pharmacy Profile Note 1 note 12/30/18 17:00 01/01/19 15:30 Coumadin Per Pharmacy* FOLLOW UP Not Given 1700 [facility] Tamsulosin HCl 0.4 mg 12/30/18 21:00 01/01/19 20:35 Flomax Cap* PO Not Given BEDTIME [facility] Trimethoprim/Sulfamethoxazole 2 tab 12/30/18 09:00 01/02/19 12:05 Bactrim Ds 800/160 Tab* PO Not Given 0900,1400,2100 [facility] Vital Signs Temp Pulse Resp BP Pulse Ox 97.3 F 122 10 92/70 79 01/01/19 23:55 01/02/19 11:00 01/02/19 12:19 01/02/19 11:00 01/02/19 11:00 O/E: Pt in NAD, intermittent gasping breaths HEENT: BiPAP mask in place Lungs: Dimnished air entry, crackles + CVS: S1, S2+ Abd: Soft, BS+ Ext: Trace edema Neuro: Non communicative Laboratory Results - last 24 hr 01/01/19 01/01/19 01/01/19 12:35 12:35 12:35 WBC 16.7 H RBC 4.22 Hgb 13.4 L Hct 42 MCV 99 H MCH 32 H MCHC 32 RDW 15 Plt Count 125 L MPV 9.2 INR (Anticoag Therapy) APTT 28.3 Sodium 139 Potassium 5.4 H Chloride 101 Carbon Dioxide 34 H Anion Gap 4 BUN 23 Creatinine 0.68 Est GFR ( Amer) 135.4 Est GFR (Non-Af Amer) 111.9 BUN/Creatinine Ratio 33.8 H Glucose 132 H Calcium 10.4 H Urine Color Urine Appearance Urine pH Ur Specific [place] Urine Protein Urine Ketones Urine Blood Urine Nitrate Urine Bilirubin Urine Urobilinogen Ur Leukocyte Esterase Urine WBC (Auto) Urine RBC (Auto) Urine Bacteria Hyaline Casts Urine Glucose Urine Ascorbic Acid 01/01/19 01/02/19 16:25 06:33 WBC RBC Hgb Hct MCV MCH MCHC RDW Plt Count MPV INR (Anticoag Therapy) 1.42 H APTT Sodium Potassium Chloride Carbon Dioxide Anion Gap BUN Creatinine Est GFR ( Amer) Est GFR (Non-Af Amer) BUN/Creatinine Ratio Glucose Calcium Urine Color [place] Urine Appearance Cloudy Urine pH 5.0 Ur Specific [place] 1.027 Urine Protein 1+(30 mg/dl) A Urine Ketones Negative Urine Blood Negative Urine Nitrate Negative Urine Bilirubin Negative Urine Urobilinogen Negative Ur Leukocyte Esterase Negative Urine WBC (Auto) Trace(0-5/hpf) Urine RBC (Auto) Trace(0-2/hpf) Urine Bacteria Absent Hyaline Casts Present A Urine Glucose Negative Urine Ascorbic Acid * A I/R: 83 y o m with h/o pulm fibrosis, chronic hypoxic resp failure with significant worsening Pt with worsening course inspite of max care He is being emperically treated for PNA and fluid overload He is also being treated for acute IPF exacerbation His hypoxic resp failure has been worsening Family at bedside Had in length discussion of pts condition Family requested comfort care Pt was started on Morphine Will d/c all other meds Pt is DNR/DNI, comfort care
[2019-01-02] MEDS: Azithromycin 500 mg/250 ml NS 500 MG/250 ML BAG IVPB SCH (12:49)
[2019-01-02] MEDS: Atorvastatin* 20 MG TAB PO SCH (15:02)
[2019-01-02] MEDS: LORazepam INJ* 2 MG/ML 1 ML VIAL IV PUSH PRN ×2 (16:43→20:49)
[2019-01-02 21:44] VITALS: BP 46/39
--- NOTE | 2019-01-03 00:16 | PN ---
Hospitalist Progress Note Date of Service: 01/03/19 PRONOUNCEMENT Called to bedside by RN. Pt without auscultated breath sounds or heart sounds. No pulse appreciated. No response to noxious stimuli. Pupils fixed and mid- dilated. No corneal reflex. Time of 12:10am 01/03 No autopsy requested.
--- NOTE | 2019-01-03 11:10 | DS ---
DISCHARGE SUMMARY/ SUMMARY: DATE OF ADMISSION: 12/29/18 DATE OF : 01/03/19 PRIMARY CARE PHYSICIAN: Becky Santos MD OUTPATIENT TRUSS BUILDER: Mackenzie Ramsey MD PRONOUCING PHYSICIAN: Gurpreet Sher MD CHIEF COMPLAINT: Shortness of breath. PRINCIPAL DIAGNOSIS: Acute on chronic hypoxic respiratory failure in setting of idiopathic pulmonary fibrosis. 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 Please H&P from Division [employer] Brianne Bermudez MD for full details, but briefly the patient was brought in by ambulance after he was noted to be saturating at 66% while on supplemental oxygen. In the last week he had anorexia, increased dyspnea, decreased activity level, fatigue, malaise. He was coughing. He denied fever, chills, or hemoptysis. 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 Upon admission to [facility], he was given high dose steroids, started on Zosyn, azithromycin, Bactrim (to cover him for potential PCP given his chronic steroid dependance). He required Vapotherm and then BiPAP. Additional evaluations included duplex Dopplers which showed no evidence of DVTs , a transthoracic echocardiogram which was unchanged from prior study of . EF was 50% to 55%. Bubble study was negative. Jfystoly-[id number] tricuspid valve regurgitation and moderate pulmonic valve regurgitation. He was seen by Palliative Care and when he did not improve despite maximal therapies, the patient's family ultimately decided to make him comfort care. He passed peacefully on 01/03/19 at 12:10 a.m. from acute on chronic hypoxic respiratory failure secondary to his IPF. The patient's family declined autopsy. TIME SPENT: Time spent on discharge 35 minutes. [id number]/[facility] #: [id number] MTDD
== END 2019-01-03 00:10 | disposition expired | DRG 189 ==
LOC: ED 12:54 → ICU 15:41
PROVIDERS: ADMIT Internal Medicine Pulmonary Disease; ATTEND Internal Medicine
PROC: 5A09457 Assistance with Respiratory Ventilation, 24-96 Consecutive Hours, Continuous Positive Airway Pressure (ICD-10-PCS; principal; 2018-12-29)
DX: J96.21 Acute and chronic respiratory failure with hypoxia (principal); J18.9 Pneumonia, unspecified organism; J84.112 Idiopathic pulmonary fibrosis; I27.20 Pulmonary hypertension, unspecified; I48.91 Unspecified atrial fibrillation; Z99.81 Dependence on supplemental oxygen; I07.1 Rheumatic tricuspid insufficiency; I50.9 Heart failure, unspecified; I25.10 Atherosclerotic heart disease of native coronary artery without angina pectoris; Z66 Do not resuscitate; E78.5 Hyperlipidemia, unspecified; M19.90 Unspecified osteoarthritis, unspecified site; I37.1 Nonrheumatic pulmonary valve insufficiency; Z51.5 Encounter for palliative care; R60.0 Localized edema; Z85.72 Personal history of non-Hodgkin lymphomas; Z87.891 Personal history of nicotine dependence; Z95.2 Presence of prosthetic heart valve; Z92.21 Personal history of antineoplastic chemotherapy; Z92.3 Personal history of irradiation; Z86.73 Personal history of transient ischemic attack (TIA), and cerebral infarction without residual deficits; Z88.8 Allergy status to other drugs, medicaments and biological substances; Z79.01 Long term (current) use of anticoagulants; Z79.1 Long term (current) use of non-steroidal anti-inflammatories (NSAID); Z79.51 Long term (current) use of inhaled steroids; Z79.52 Long term (current) use of systemic steroids; Z79.899 Other long term (current) drug therapy
CPT/HCPCS: 36415; 71045; 80048; 80053; 81003; 81015; 82375; 82803; 83605; 83615; 83735; 83880; 84100; 84484; 85025; 85027; 85610; 85730; 87040; 87086; 87641; 93005; 93306; 93970; 94640; 94660; 99285; A9270-GY; J0456; J1100; J1644; J2060; J2270; J2543; J2920; J3430; J3490